=== PATIENT | female | born 1960 | race Caucasian/White ===

== ENCOUNTER 2022-05-26 12:45 | Observation (INO) | payer OTHER ==
--- OUTSIDE RECORDS SUMMARY | 2022-05-26 12:50 | XMS REPORT | Continuity of Care Document ---
:1960 Author Organization [facility] t Address [address] [place] [address] Care Team Providers Name Role Phone SHARPLESS Primary Care Physician Unavailable Surekha Attending Clinician Unavailable THU BELTRAN Attending Clinician Unavailable THU BELTRAN Attending Clinician Unavailable DARRIUS CHRISTINA Attending Clinician Unavailable DARRIUS CHRISTINA Attending Clinician Unavailable ASKED Attending Clinician Unavailable FERNANDO MUKHERJEE Attending Clinician Unavailable FERNANDO MUKHERJEE Attending Clinician Unavailable Peter Ornelas NP Attending Clinician Yaya LILLY Attending Clinician Unavailable Doctor Unassigned, Name Attending Clinician Unavailable Kimo RUVALCABA L Attending Clinician Unavailable Reena Farris Attending Clinician Sangeeta GOMES Attending Clinician Jonathan Keane DO Attending Clinician REENA OROURKE Attending Clinician Unavailable DARRIUS CHRISTINA Admitting Clinician Unavailable Sangeeta GOMES Admitting Clinician Payers Payer Name Policy Type Policy Number Effective Date Expiration Date S ource PREMIUM O - [facility] [id number] 2015 EMPLOYEE PLAN - [facility] 00:00:00 [facility] - [id number] CARDIOVASCULAR CARE PROVIDERS [facility] POS SELECT [id number] 2014 CHOICE 00:00:00 Problems Condition Condition Condition Status Onset Resolution Last Treating Co mments Source Name Details Category Date Date Treatment Clinician Date Pneumonia Pneumonia Disease Active Uni vers due to due to 07-26 ity of COVID-19 COVID-19 00:00: [place] virus virus 00 Medical Branch Preop Preop Disease Active [facility] cardiovasc cardiovasc 6-12 it y of ular exam [place] Type 2 Type 2 Disease Active Overview: [facility] diabetes diabetes 01-01 Formattin Col lege mellitus, mellitus, 00:00: g of this o f controlled controlled 00 note Me dicin (HCCode) (HCCode) might be e different from the original. ON lantus Obesity Obesity Disease Active 2012-11 [facility] 12-28 Assessmen College 00:00: t & Plan: of 00 Formattin Medicin g of this e note might be different from the original. Advised wt loss with healthy diet and excercise Poor sleep Poor sleep Disease Active 2012-11 [facility] hygiene hygiene 2-13 Assessmen [facility] ge 00:00: t & Plan: of 00 Formattin Medicin g of this e note might be different from the original. Re-counse led on proper sleep hygiene practices Sleep-diso Sleep-diso Disease Active 2012-11 [facility] breathing 00:00: t & Plan: o f 00 Formattin Medicin g of this e note might be different from the original. Sleep study reviewed with patient, small amount REM sleep, can not rule out YONATHAN will need repeat Will check HST on weekend , and further plan as indicated Benign Benign Disease Active [facility] neoplasm neoplasm 07-01 Colleg e of other of other 00:00: of specified specified 00 Medi robbin sites of sites of e skin skin Angioma Angioma Disease Active [facility] 07-01 College 00:00: of 00 Medicin e Benign Benign Disease Active 2010-11 [facility] essential essential 12-03 HTN HTN 00:00: Hospita 00 l HLD HLD Disease Active 2010-11 [facility] (hyperlipi (hyperlipi 12-03 st demia) demia) 00:00: Hospita 00 l Diabetes Diabetes Disease Active Metho di mellitus mellitus 1-01 st 00:00: Hospita 00 l Hypothyroi Hypothyroi Disease Active M ethodi dism dism 11-05 st 00:00: Hospita 00 l Type 2 Type 2 Disease Active Overview: Univer s diabetes diabetes 11-05 Formattin ity of mellitus, mellitus, 00:00: g of this [place] controlled controlled note Me dical might be Branch different from the original. Formattin g of this note might be different from the original. ON lantus HYPERTENSI HYPERTENSI Disease Active [facility] [place] [employer] OVERWEIGHT OVERWEIGHT [facility] [employer] DEXTROCARD DEXTROCARD Disease [place] [employer] Hypothyroi Hypothyroi Problem Active C ommon dism dism [facility] Sinus Sinus Problem Active Common problem problem [facility] Type 2 Type 2 Diagnosis Active Common diabetes diabetes Spirit mellitus mellitus - 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 Com mon current current [facility] use of use [facility] insulin insulin [facility] Pain in Pain in Problem Active Common left left Spirit shoulder shoulder [facility] Abnormal Abnormal Problem Active Commo n heart heart Spirit rhythm rhythm [facility] Other Other Problem Active Common chronic chronic [facility] pain pain [facility] Skin Skin Problem Active Common lesion lesion [facility] Allergies, Adverse Reactions, Alerts Allergy Allergy Status Severity Reaction(s) Onset Inactive Treating Comm ents Source Name Type Date Date Clinician Egg Propensi Active Other - See States Uni vers ty to comments 07-25 she feels ity o f adverse 00:00: sleepy [place] reaction 00 and [facility] drug EGG DRUG Active Other-Cmnt Univer s INGREDI 07-25 ity of 00:00: [place] 00 Medical Branch Egg Propensi Active Other (See 2015-11 Unsure Meth brad Derived ty to Comments) 0 st adverse 00:00: Hospita reaction 00 l s to drug Lactobac Propensi Active Other (See 2015-11 Bloating Methodi illus ty to Comments) 0 st Acidoph- adverse 00:00: Hospita Lactase reaction 00 l s to drug Oats Propensi Active Other (See 2015-11 unsure Meth brad (Boy) ty to Comments) 0 st adverse 00:00: Hospita reaction 00 l s to drug Soybean Propensi Active Other (See 2015-11 Unsure Met hodi ty to Comments) 0 adverse 00:00: Hospita reaction 00 l s to drug Yogurt Propensi Active Other (See 2015-11 Unsure Meth brad ty to Comments) 0 adverse 00:00: Hospita reaction 00 l s to drug Cephalex Propensi Active Nausea Only Aster cantorodi in ty to 04-07 st adverse 00:00: Hospita reaction 00 l s to drug LACTOBAC Allergy Active Med Other [facility] Medical LACTASE 00 Center EGG Allergy Active Other [facility] CEPHALEX Allergy Active Low Nausea [facility] 00:[facility] Medical [facility] Center OATS Allergy Active Other [facility] (BOY) [facility] SOYBEAN Allergy [facility] Center YOGURT Allergy Active Other [facility] 00:[facility]: Medical 00 Edroy Keflex Propensi Active GI [facility] ty to 11-09 College adverse 00:00: of reaction 00 Medicin s to e drug Eggs/Aureliano Adverse Active Info Not Commo n les/Oats Reaction Available [facility] Keflex Adverse Active Info Not Common Reaction Available [facility] soy Adverse Active Info Not Common Reaction Available [facility] dairy Adverse Active Info Not Common Reaction Available [facility] Family History Family Member Diagnosis Comments Start Date Stop Date Source Natural father Heart disease [facility] Natural father Other [facility] Natural mother Diabetes [facility] Natural mother Emphysema [facility] Social History Social Habit Start Date Stop Date Quantity Comments Source Exposure to Not sure [employer] SARS-CoV-2 of Medicine (event) History SDOH [facility] Alcohol Frequency Hospita l History SDOH [facility] Alcohol Std Hospital Drinks History SDOH [facility] Alcohol intake 2021-08-29 2021-08-29 Current drinker of [facility] 00:00:00 00:00:00 alcohol (finding) Hospita l Tobacco use and 2016-04-07 2016-04-07 Smokeless tobacco [facility] exposure 00:00:00 00:00:00 non-user Hospital Alcohol Comment 2016-04-07 2016-04-07 occasional [facility] 00:00:00 00:00:00 Hospital Sex Ass[birth year] At [birth year] [facility] 00:00:00 00:00:00 Hospital Smoking Status Start Date Stop Date Source Never smoked tobacco [facility] Medications Ordered Filled Start Stop Current Ordering Indication Dosage Frequency Signature Comments Components Source Medication Medication Date Date Medication? Clinician (SIG) Name Name clonidine 2020-11 Yes 1{patch Place 1 [facility] (CATAPRES) 2-07 } Patch onto Col lege 0.3 MG/24HR 14:59: the skin of patch 09 every 7 Medicin days. e Insulin 2020-11 Yes [id number] 225U Inject 225 [facility] Glargine 2-07 Units into Colle ge (TOUJEO MAX 14:59: the skin of SOLOSTAR 09 daily. Medicin SC) e Loratadine 2020-11 Yes Take by [place] larissa 10 MG CAPS 2-07 mouth. College 14:58: of 40 Medicin e clonidine 2020-11 Yes [id number] 2{patch Place 2 [facility] (CATAPRES) 2-07 } Patches Colleg e 0.3 MG/24HR 14:58: onto the of patch 40 skin every Medicin 7 days. e Dulaglutide 2020-11 Yes [id number] 1.5mg Inject 1.5 [facility] 1.5 2-07 mg into College MG/0.5ML 14:58: the skin of SOPN 40 every 7 Medicin days. e levothyroxi 2020-11 Yes [id number] 88ug Take 88 [place] ne 2-07 mcg by [place] (SYNTHROID) 14:58: mouth of 88 MCG 40 daily. Medicin tablet e lisinopril- 2020-11 Yes [id number] 1{tbl} Take 1 Tab [facility] hydrochloro 2-07 by mouth Nick ege thiazide 14:58: daily. of (PRINZIDE, 40 Medicin ZESTORETIC) e 10-12.5 MG per tablet Na 2020-11 Yes [SUPREP] [facility] Sulfate-K 1-05 Take as [place] Sulfate-Mg 00:00: directed. of Sulf 00 Medicin (SUPREP e BOWEL PREP KIT) 17.5-3.13-1 .6 GM/177ML SOLN omega3/dha/ 2020-11 Yes Gummy Metho di epa/fish 0-25 st oil/sunflw 09:22: Hospita (OMEG3-DHA- 12 l EPA-FISH-SN FL, BULK,) powder coenzyme 2020-11 Yes Chew. [facility] Q10 100 mg 0-25 st tablet,chew 09:21: Hospit a able 49 l cholecalcif 2020-11 Yes 1000U QD Take 1,000 Methodi rahul, 0-[address] vitamin D3, 09:21: mouth Hospi ta (VITAMIN 46 daily. l D3) 1,000 Gummy unit tablet cloniDINE Yes 2{patch 2 Patch, U nivers (CATAPRES-T 08-01 } Transderma it y of TS 3) 0.3 05:00: l (Apply [place] mg/24 hr 00 To Skin), Medica l patch 2 Administer Branch Patch over 7 Days, QWEEKLY, First dose on Sun08/01/21 at 0000, Until Discontinu ed, Routine dulaglutide Yes 1.5mg inject 1.5 Univers (TRULICITY) 9-24 mg under ity of 1.5 mg/0.5 19:03: the skin Nadeem as mL PnIj 20 weekly. Medical Last Branch administra tion 07/25/21 insulin Yes 200U inject 200 Univ ers degludec 9-24 Units ity of (TRESIBA 19:03: under the [place] FLEXTOUCH 20 skin Medical U-100) 100 daily. Branch unit/mL (3 mL) InPn cloniDINE Yes 2{patch Apply 2 Un reid 0.3 mg/24 9-24 } Patches to ity of hr patch 19:03: skin [place] 20 weekly. Medical Branch levothyroxi Yes 88ug Take 88 Uni vers ne 9-24 mcg by ity of (SYNTHROID) 19:03: mouth [place] 88 mcg 20 every Medical tablet morning. Branch lisinopriL- Yes 1{tbl} Take 1 Un reid hydrochloro 9-24 tablet by ity of thiazide 19:03: mouth [place] 10-12.5 mg 20 daily. Medical per tablet Branch loratadine Yes Take by Uni vers 10 mg 9-24 mouth. ity of capsule 19:03: [place] 20 Medical Branch insulin Yes inject Univers glargine 9-24 under the ity of 100 unit/mL 19:03: skin. [place] injection 20 Medical Branch cholecalcif Yes 1000U Take 1,000 Univers rahul, 9-24 Units by ity of vitamin D3, 19:03: mouth. [place] 25 mcg 20 Medical (1,000 Branch unit) tablet omega-3-dha Yes by NOT Univ ers -epa-dpa-fi 9-24 APPLICABLE it y of sh oil 19:03: route. [place] (OMEGA-3 20 Medical 2100) Branch 1,050-1,200 mg Cap dulaglutide Yes 1.5mg inject 1.5 Univers (TRULICITY) 9-24 mg under ity of 1.5 mg/0.5 19:03: the skin [place]adeem as mL PnIj 20 weekly. Medical Last Branch administra tion 07/25/21 insulin Yes 200U inject 200 Univ ers degludec 9-24 Units ity of (TRESIBA 19:03: under the [place] FLEXTOUCH 20 skin Medical U-100) 100 daily. Branch unit/mL (3 mL) InPn cloniDINE Yes 2{patch Apply 2 Un reid 0.3 mg/24 9-24 } Patches to ity of hr patch 19:03: skin [place] 20 weekly. Medical Branch levothyroxi Yes 88ug Take 88 Uni vers ne 9-24 mcg by ity of (SYNTHROID) 19:03: mouth [place] 88 mcg 20 every Medical tablet morning. Branch lisinopriL- Yes 1{tbl} Take 1 Un reid hydrochloro 9-24 tablet by ity of thiazide 19:03: mouth [place] 10-12.5 mg 20 daily. Medical per tablet Branch loratadine Yes Take by Uni vers 10 mg 9-24 mouth. ity of capsule 19:03: [place] 20 Medical Branch insulin Yes inject Univers glargine 9-24 under the ity of 100 unit/mL 19:03: skin. [place] injection 20 Medical Branch cholecalcif Yes 1000U Take 1,000 Univers rahul, 9-24 Units by ity of vitamin D3, 19:03: mouth. [place] 25 mcg 20 Medical (1,000 Branch unit) tablet omega-3-dha Yes by NOT Univ ers -epa-dpa-fi 924 APPLICABLE it y of sh oil 19:03: route. [place] (OMEGA-3 20 Medical 2100) Branch 1,050-1,200 mg Cap dulaglutide Yes 1.5mg inject 1.5 Univers (TRULICITY) 9-24 mg under ity of 1.5 mg/0.5 19:03: the skin [place]ade[place] as mL PnIj 20 weekly. Medical Last Branch administra tion 07/25/21 insulin Yes 200U inject 200 Univ ers degludec 9-24 Units ity of (TRESIBA 19:03: under the [place] FLEXTOUCH 20 skin Medical U-100) 100 daily. Branch unit/mL (3 mL) InPn cloniDINE Yes 2{patch Apply 2 Un reid 0.3 mg/24 9-24 } Patches to ity of hr patch 19:03: skin [place] 20 weekly. Medical Branch levothyroxi Yes 88ug Take 88 Uni vers ne 9-24 mcg by ity of (SYNTHROID) 19:03: mouth [place] 88 mcg 20 every Medical tablet morning. Branch lisinopriL- Yes 1{tbl} Take 1 Un reid hydrochloro 9-24 tablet by ity of thiazide 19:03: mouth [place] 10-12.5 mg 20 daily. Medical per tablet Branch loratadine 2021-0 Yes Take by Uni vers 10 mg 9-24 mouth. ity of capsule 19:03: [place] 20 Medical Branch insulin Yes inject Univers glargine 9-24 under the ity of 100 unit/mL 19:03: skin. [place] injection 20 Medical Branch cholecalcif Yes 1000U Take 1,000 Univers rahul, 9-24 Units by ity of vitamin D3, 19:03: mouth. [place] 25 mcg 20 Medical (1,000 Branch unit) tablet omega-3-dha Yes by NOT Univ ers -epa-dpa-fi 07-29 APPLICABLE it y of sh oil 19:03: route. [place] (OMEGA-3 20 Medical 2100) Branch 1,050-1,200 mg Cap insulin Yes 38U 38 Units, Unive rs glargine 9-24 Subcutaneo ity o f (LANTUS 14:00: us, DAILY, [place] U-100) 00 First dose Medical injection (after Branch 38 Units last modificati on) on Sun07/29/21 at 0900, Until Discontinu ed, Routine insulin Yes 16U 16 Units, Unive rs lispro 9-24 Subcutaneo ity of (human) 13:00: us, TID [place] (HumaLOG 00 MEALS, Medical U-100) First dose Branch injection (after 16 Units last modificati on) on Sun07/29/21 at 0800, Until Discontinu ed, Routine Sliding Yes Subcutaneo Univ ers Scale - us, Q4H, ity of Insulin - 17:00: [place] Lispro 00 on Sun Medical (HumaLOG) + 07/28/21 at Br anch Fsbg 1200, Testing Until Discontinu ed, Routine insulin 0 2020- No 12U 12 Units, Univ ers lispro 07-28 Subcutaneo ity of (human) 17:00: 21:56 us, TID [place] (HumaLOG 00 :42 MEALS, Medical U-100) First dose Branch injection (after 12 Units last modificati on) on Sun07/28/21 at 1200, Until Discontinu ed, Routine Sliding 2020-0 2020- No Subcutaneo Uni vers Scale 07-28 us, Q4H, ity of Insulin - 01:00: 13:41 First dose [place] Lispro 00 :53 (after Medical (HumaLOG) + last Branch Fsbg modificati Testing on) on Sun07/27/21 at 2000, Until Discontinu ed, Routine enoxaparin 0 Yes 40mg 40 mg, Unive rs (LOVENOX) 07-26 Subcutaneo ity of injection 22:00: [place], DAILY, [place] 40 mg 00 First dose Medical on Sun07/26/21 at 1700, Until Discontinu ed, Routine dexamethaso 0 Yes 6mg 6 mg, IV Un reid ne 07-26 Piggyback, ity of (DECADRON 17:00: QNOON, [place] PHOSPHATE) 00 First dose Med ical 6 mg in on Sun NaCl 0.9% 07/26/21 at (NS) 50 mL 1200, piggyback Until Discontinu ed, Administer over 20 Minutes, 50 mL hydroCHLORO Yes 12.5mg 12.5 mg, [facility] thiazide 07-26 Oral, ity of (ESIDRIX) 14:00: DAILY, [place] capsule 00 First dose Medica l 12.5 mg on Sun07/26/21 at 0900, Until Discontinu ed, Routine lisinopriL Yes 10mg 10 mg, Unive rs (PRINIVIL,Z 07-26 Oral, ity of ESTRIL) 14:00: DAILY, [place] tablet 10 00 First dose Medi ken mg on Sun07/26/21 at 0900, Until Discontinu ed, Routine polyethylen Yes 17g 17 g, Unive rs e glycol 07-26 Oral, ity of 3350 powder 14:00: DAILY, [place] 17 g 00 First dose Medical on Sun07/26/21 at 0900, Until Discontinu ed, Routine insulin 2020- No 10U 10 Units, Univ ers lispro 07-26 Subcutaneo ity of (human) 14:00: 13:41 us, TID [place] (HumaLOG 00 :53 MEALS, Medical U-100) First dose Branch injection on Sun 10 Units 07/26/21 at 0900, Until Discontinu ed, Routine insulin 2020- No 34U 34 Units, Univ ers glargine 07-26 Subcutaneo ity of (LANTUS 14:00: 21:57 us, DAILY, [place] as U-100) 00 :13 First dose Medical injection on e Branch 34 Units 07/26/21 at 0900, Until Discontinu ed, Routine Sliding No Subcutaneo Uni vers Scale 07-26 us, TID ity of Insulin - 13:00: 21:16 MEALS+HS, [place] Lispro 00 :49 First dose Medical (HumaLOG) + on Branch Fsbg 07/26/21 at Testing 0800, Until Discontinu ed, Routine levothyroxi Yes 88ug 88 mcg, Uni vers ne 07-26 Oral, ity of (SYNTHROID) 11:00: QAM-0600, [place] tablet 88 00 First dose Medi ken mcg on [facility] Branch 07/26/21 at 0600, Until Discontinu ed, Routine glucagon Yes 1mg 1 mg, Univers (GLUCAGEN 07-26 Intramuscu ity of DIAGNOSTIC 07:34: lar, PRN, [place] KIT) 15 Starting Medical injection 1 on [facility] Branch mg 07/26/21 at 0234, Until Discontinu ed, NEW, Blood Glucose < or = 70 mg/dL and patient is unable to swallow or has mental changes. dextrose 50 Yes 25mL 25 mL, Univ ers % in water 07-26 Slow IV ity of (D50W) 07:34: Push, PRN, [place] injection 15 Starting Medica l 25 mL on [facility] Branch 07/26/21 at 0234, Until Discontinu ed, NEW, Blood Glucose < or = 70 mg/dL and patient is unable to swallow or has mental status changes. ipratropium Yes 2{puff} 2 Puff, Univers (ATROVENT 07-26 Inhalation ity of HFA) 05:40: , Q6HPRN, [place] inhaler 2 06 Starting Medica l Puff on [facility] Branch 07/26/21 at 0040, Until Discontinu ed, Routine, Shortness of Breath, Wheezing, Bronchospa sm, Chest tightness< br>Is this order for a patient with suspected or confirmed COVID-19 infection? Yes albuterol Yes 2{puff} 2 Puff, Un reid (VENTOLIN) 07-26 Inhalation ity of inhaler 2 05:40: , Q6HPRN, [place] as Puff 05 Starting Medical on [facility] Branch 07/26/21 at 0040, Until Discontinu ed, Routine, Wheezing, Shortness of Breath, Bronchospa sm, Chest tightness codeine-gua Yes 10mL 10 mL, Univ ers ifenesin 07-26 Oral, ity of (ROBITUSSIN 05:40: Q6HPRN, [place] as AC) 10-100 03 Starting Medic al mg/5 mL on [facility] oral 07/26/21 at solution 10 0040, mL Until Discontinu ed, Routine, Cough acetaminoph Yes 650mg 650 mg, Un reid en 07-26 Oral, ity of (TYLENOL) 05:38: Q6HPRN, [place] tablet 650 11 Starting Medic al mg on [facility] Branch 07/26/21 at 0038, Until Discontinu ed, Routine, Pain (scale 1-3) iopamidol 2020- No [id number] 100mL 100 mL, Univers (ISOVUE 07-26 Intravenou ity o f 370-500 mL) 00:13: 00:14 s, ONCE, 1 [place] injection 00 :00 dose, On Medica l 100 mL [facility] Branch 07/25/21 at 1930, Routine dexamethaso 2020- No 10mg 10 mg, IV Univers ne 07-26 Push, ity of (DECADRON 00:00: 23:16 ONCE, 1 [place] PHOSPHATE) 00 :00 dose, On Medic al injection [facility] 10 mg 07/25/21 at 1900, STAT lisinopriL- Yes 1 tablet Me thodi hydrochloro 7-[address] thiazide 00:00: Hospita (PRINZIDE) 00 l 10-12.5 mg per tablet clonIDINE Yes APPLY 2 Metho di (CATAPRES-T 7-[address] TS) 0.3 00:00: Hospita mg/24 hr 00 TRANSDERMA l LLY WEEKLY levothyroxi Yes 88ug QD Take 88 Met hodi ne 6-[address] (Thyquidity 00:00: mouth Hospi ta ) 20 mcg/mL 00 daily. l solution dulaglutide Yes INJECT Meth brad (Trulicity) 6-[address] 1.5 mg/0.5 00:00: UNDER THE Ho spita mL 00 SKIN EVERY l subcutaneou 7 DAYS s pen lisinopriL- 2020- No 1 tablet M ethodi hydrochloro 04-27 07-[address] thiazide 00:00: 00:00 Hospita (PRINZIDE) 00 :00 l 10-12.5 mg per tablet lisinopriL- 2020- No 1 tablet M ethodi hydrochloro 04-26 06-22 st thiazide 15:07: 00:00 Hospita (PRINZIDE) 16 :00 l 10-12.5 mg per tablet pravastatin 2020- No 1 tablet M ethodi (PRAVACHOL) 04-26- st 10 mg 15:06: 00:00 Hospita tablet 13 :00 l insulin Yes 300 units Metho di degludec -[address] (TRESIBA) 00:00: Hospita 200 unit/mL 00 l (3 mL) subcutaneou s pen pen needle, Yes Use twice M ethodi diabetic 6-[address] (BD 00:00: Hospita Ultra-Fine 00 l Short Pen Needle) 31 gauge x 5/16" needle Insulin Yes 2 (two) Univers [place], 6-22 times ity of Disposable, 00:00: daily. [place] 31 gauge x 00 Medical 5/16" Ndle Branch Insulin Yes 2 (two) Univers [place], 6-22 times ity of Disposable, 00:00: daily. [place] 31 gauge x 00 Medical 5/16" Ndle Branch Insulin Yes 2 (two) Univers [place], 6-22 times ity of Disposable, 00:00: daily. [place] 31 gauge x 00 Medical 5/16" Ndle Branch Insulin Yes See Admin Baylo r Degludec 6-22 Instructio Colle ge (TRESIBA 00:00: ns. of FLEXTOUCH) 00 Medicin 200 UNIT/ML e SOPN levothyroxi 2021- No 88ug QD Take 1 Met hodi ne 04-26 tablet (88 st (Synthroid) 00:00: 04:59 mcg total) Hospita 88 mcg 00 :00 by mouth l tablet daily. clonIDINE 2020- No APPLY 2 Meth brad (CATAPRES-T 04-26 07-[address] TS) 0.3 00:00: 00:00 Hospita mg/24 hr 00 :00 TRANSDERMA l LLY WEEKLY lisinopriL- 2020- No 1 tablet M ethodi hydrochloro 04-26 st thiazide 00:00: 00:00 Hospita (PRINZIDE) 00 :00 l 10-12.5 mg per tablet dulaglutide 2020- No INJECT Met hodi (Trulicity) 12-[address] 1.5 mg/0.5 00:00: 00:00 UNDER THE H ospita mL pen 00 :00 SKIN EVERY l injector 7 DAYS flash 2019-11 Yes 1{devic Q14D 1 Device Metho di glucose 2-21 e} every 14 st sensor kit 00:00: (fourteen) H ospita 00 days. l flash 2019-11 Yes 1{devic 1 Device Unive rs glucose 2-21 e} by NOT ity of sensor Kit 00:00: APPLICABLE [place] 00 route. Medical Branch flash 2019-11 Yes 1{devic 1 Device Unive rs glucose 2-21 e} by NOT ity of sensor Kit 00:00: APPLICABLE [place] 00 route. Medical Branch flash 2019-11 Yes 1{devic 1 Device Unive rs glucose 2-21 e} by NOT ity of sensor Kit 00:00: APPLICABLE [place] 00 route. Medical Branch clonIDINE 2019-11- No APPLY 2 Meth brad (CATAPRES-T 12-23 06-[address] TS) 0.3 00:00: 00:00 Hospita mg/24 hr 00 :00 TRANSDERMA l LLY WEEKLY Accu-Chek 2019-11- No TEST 4 Metho di Guide test 2-03 06-[address] strips 00:00: 00:00 DAILY Hospita strip test 00 :00 l strips alirocumab 2019-11- No 150mg Q14D Inject 1 M ethodi (PRALUENT) 11-17-22 mL ([address] 150 mg/mL 00:00: 00:00 total) Hospi ta pen 00 :00 under the l injector skin every subcutaneou 14 s injection (fourteen) days. Trulicity 2019-11- No INJECT Metho di 1.5 mg/0.5 11-[address] mL pen 00:00: 00:00 UNDER THE Hospi ta injector 00 :00 SKIN EVERY l 7 DAYS levothyroxi 2019-11- No 100ug QD Take 100 Methodi ne 100 - mcg by st mcg/mL 00:00: 00:00 mouth Hospita solution 00 :00 daily. l pen needle, 2020- No Use twice Methodi diabetic 04-12- daily st (BD 00:00: 00:00 Hospita Ultra-Fine 00 :00 l Short Pen Needle) 31 gauge x 5/16" needle Accu-Chek 2020- No USE 4 Method i Fastclix -28 12- TIMES A st Lancet Drum 00:00: 00:00 DAY Hospi ta misc 00 :00 l insulin 2018-11- No 300 units Meth brad degludec 18 - daily st 200 unit/mL 00:00: 00:00 Hospi ta (3 mL) 00 :00 l insulin pen miconazole Yes [id number] Apply [facility] (MICOTIN) 2 6-05 under College % powder 00:00: abdomen of 00 twice a Medicin day when e rash is present enalapril 1 Yes 5 mL Method i mg/mL in 4-[address] ORA-PLUS 00:00: daily. Hospita sugar-free 00 Patient is l compound unable to vehicle-com swallow pounding tablets vehicle no.8 blood-gluco 2016-11 Yes [id number] Test Me thodi se meter 2-[address] misc 00:00: x daily Hospita 00 l CENTRUM 2004- Yes [facility] SILVER OR 2-19 College TABS 00:00: of 00 Medicin e Tresiba Tresiba Yes Stacie as Common FlexTouch FlexTouch Millender directed [facility] Premarin Premarin Yes Stacie 1 tablet Co mmon Millender [facility] Synthroid Synthroid Yes Stacie 1 tablet Common Millender on an [facility] stomach in [facility] Pravastatin Pravastatin Yes Stacie 1 tablet Common Sodium Sodium Millender [facility] Lisinopril- Lisinopril- Yes Stacie 1 tablet Common Hydrochloro Hydrochloro Mill[facility] thiazide thiazide [facility] Catapres-TT Catapres-TT Yes Stacie 2 patchs Common S-3 S-3 Millender to skin [facility] Trulicity Trulicity Yes Stacie 1.5 mg Co mmon Millender (0.5 ml) [facility] Epaned Epaned Yes Stacie 5 ml Common Millender [facility] Repatha Repatha Yes Stacie as Common Millender directed [facility] Vital Signs Vital Name Observation Time Observation Value Comments Source HEIGHT 2022-02-16 11:50:00 160 cm WEIGHT 2022-02-16 11:50:00 96.616 kg HEIGHT 2022-02-15 09:57:00 160 cm WEIGHT 2022-02-15 09:57:00 97.523 kg HEIGHT 2022-02-16 11:50:00 160 cm WEIGHT 2022-02-16 11:50:00 96.616 kg HEIGHT 2022-02-15 09:57:00 160 cm WEIGHT 2022-02-15 09:57:00 97.523 kg Heart rate 2021-10-11 20:59:00 73 /min [facility] Body height 2021-10-11 20:59:00 160 cm [facility] Body weight 2021-10-11 20:59:00 99.338 kg [facility] BMI 2021-10-11 20:59:00 38.79 kg/m2 [facility] Systolic blood 2021-10-11 20:59:00 152 mm[Hg] [facility] pressure Medicine Diastolic blood 2021-10-11 20:59:00 75 mm[Hg] [facility] Medicine Heart rate 2021-07-29 22:39:00 70 /min [facility] Respiratory rate 2021-07-29 22:39:00 22 /min [facility] Oxygen saturation in 2021-07-29 22:39:00 98 /min [facility] blood by [facility] Pulse oximetry Branch Body temperature 2021-07-29 22:19:00 36.17 Melani [facility] Systolic blood 2021-07-29 21:16:00 133 mm[Hg] [facility] Diastolic blood 2021-07-29 21:16:00 70 mm[Hg] [facility] Body height 2021-07-26 04:39:00 160 cm [facility] Body weight 2021-07-26 04:39:00 98.431 kg [facility] BMI 2021-07-26 04:39:00 38.44 kg/m2 [facility] Procedures Procedure Date / Time Performing Clinician Source Performed CPAP MACHINE 2022-05-03 15:22:15 [facility] COMPREHENSIVE METABOLIC 2021-08-23 13:11:00 Lamar Ornelas [facility] PANEL HEMOGLOBIN A1C 2021-08-23 13:11:00 Lamar Ornelas [facility] LIPID PANEL 2021-08-23 13:11:00 Lamar Ornelas [facility] THYROID STIMULATING 2021-08-23 13:11:00 Lamar Ornelas [facility] HORMONE T4, FREE 2021-08-23 13:11:00 Lamar Ornelas [facility] DNR 2021-08-09 05:01:00 Doctor Unassigned, No [facility]iver [facility] POCT GLUCOSE (AUTOMATED) 2021-07-29 22:17:00 Marcello Orourke [facility] POCT GLUCOSE (AUTOMATED) 2021-07-29 21:16:00 MadelineMarcello Uni versity of [facility] POCT GLUCOSE (AUTOMATED) 2021-07-29 17:03:00 MadelineMarcello Uni vers[facility] of [facility] POCT GLUCOSE (AUTOMATED) 2021-07-29 15:51:00 MadelineMarcello Uni vers[facility] POCT GLUCOSE (AUTOMATED) 2021-07-29 13:17:00 MadelineMarcello [facility] POCT GLUCOSE (AUTOMATED) 2021-07-29 09:59:00 MadelineMarcello [facility] MAGNESIUM 2021-07-29 09:22:00 Chidi Thomason [facility] BASIC METABOLIC PANEL 2021-07-29 09:22:00 Chidi Thomason [facility] [place] (NA, K, CL, CO2, GLUCOSE, Medica l Branch BUN, CREATININE, CA) POCT GLUCOSE (AUTOMATED) 2021-07-29 09:02:00 MadelineMarcello [facility] vers[facility] POCT GLUCOSE (AUTOMATED) 2021-07-29 05:07:00 MadelineMarcello [facility] POCT GLUCOSE (AUTOMATED) 2021-07-29 01:57:00 MadelineMarcello [facility] POCT GLUCOSE (AUTOMATED) 2021-07-28 21:44:00 MadelineMarcello [facility] POCT GLUCOSE (AUTOMATED) 2021-07-28 17:21:00 MadelineMarcello Uni vers[facility] MAGNESIUM 2021-07-28 09:48:00 Chidi Thomason [facility] BASIC METABOLIC PANEL 2021-07-28 09:48:00 Chidi Thomason [facility] [place] (NA, K, CL, CO2, GLUCOSE, Medica l Branch BUN, CREATININE, CA) POCT GLUCOSE (AUTOMATED) 2021-07-28 09:32:00 MadelineMarcello Uni vers[facility] POCT GLUCOSE (AUTOMATED) 2021-07-28 05:04:00 MadelineMarcello [facility] POCT GLUCOSE (AUTOMATED) 2021-07-28 01:33:00 Marcello Orourke [facility] POCT GLUCOSE (AUTOMATED) 2021-07-27 20:17:00 Marcello Orourke [facility] MAGNESIUM 2021-07-27 08:44:00 [facility] BASIC METABOLIC PANEL 2021-07-27 08:44:00 Merritt Taylor [facility] (NA, K, CL, CO2, GLUCOSE, Medica l Branch BUN, CREATININE, CA) CBC WITH DIFF 2021-07-27 08:44:[address] [facility] URINALYSIS 2021-07-26 17:18:[address] [facility] PNEUMOCOCCAL ANTIGEN 2021-07-26 17:18:00 Merritt Taylor [facility] LEGIONELLA URINARY 2021-07-26 17:17:00 Merritt Taylor [facility] ANTIGEN [facility] POCT GLUCOSE (AUTOMATED) 2021-07-26 13:27:00 Marcello Orourke [facility] INTACT PTH CALCIUM GROUP 2021-07-26 09:58:00 Merritt Taylor [facility] PHOSPHORUS 2021-07-26 06:28:[address] [facility] LACTATE DEHYDROGENASE 2021-07-26 06:28:[address] [facility] C-REACTIVE PROTEIN 2021-07-26 06:28:00 Merritt Taylor [facility] TROPONIN I 2021-07-26 06:28:[address] [facility] HEPATIC FUNCTION PANEL 2021-07-26 06:28:00 Merritt Taylor [facility] ([id number]) (ALB,T.PRO,[facility] Branch T,BU/BC,ALT,AST,ALK PHOS) PROCALCITONIN 2021-07-26 06:28:[address] [facility] BLOOD CULTURE SCREEN 2021-07-26 06:26:00 Merritt Taylor [facility] CT CHEST PULMONARY 2021-07-26 00:18:36 Marcello Orourke [facility] ANGIOGRAM [facility] XR CHEST 1 VW 2021-07-25 23:19:54 Ellie Javier [facility] MAGNESIUM 2021-07-25 22:30:[address] [facility] FERRITIN SERUM 2021-07-25 22:30:[address] [facility] TROPONIN I 2021-07-25 22:30:[address] [facility] COMP. METABOLIC PANEL 2021-07-25 22:30:00 Marcello Orourke [facility] ([id number]) [facility] CBC WITH DIFF 2021-07-25 22:30:[address] [facility] GLYCOSYLATED HEMOGLOBIN 2021-07-25 22:30:00 Merritt Taylor [facility] (A1C) [facility] D-DIMER 2021-07-25 22:30:[address] [facility] N-TERMINAL PRO-BNP 2021-07-25 22:30:00 Marcello Orourke [facility] COVID-19 (ID NOW RAPID 2021-07-25 22:30:00 Marcello Orourke [facility] TESTING) Medical Branch LAB ONLY COVID 2021-07-25 22:30:00 Marcello Orourke [facility] INTERPRETATION [facility] HB ECG ROUTINE & RHYTHM 2021-07-25 22:12:50 Marcello Orourke [facility] STRIP [facility] COMPREHENSIVE METABOLIC 2021-04-19 12:45:00 Lamar Ornelas [facility] PANEL HEMOGLOBIN A1C 2021-04-19 12:45:00 Lamar Ornelas [facility] LIPID PANEL 2021-04-19 12:45:00 Lamar Ornelas [facility] THYROID STIMULATING 2021-04-19 12:45:00 Lamar Ornelas [facility] HORMONE T4, FREE 2021-04-19 12:45:00 Lamar Ornelas [facility] MICROALBUMIN / CREATININE 2021-04-19 12:45:00 Lamar Ornelas [facility] URINE RATIO COMPREHENSIVE METABOLIC 2020-12-13 13:58:00 Lamar Ornelas [facility] PANEL HEMOGLOBIN A1C 2020-12-13 13:58:00 Lamar Ornelas [facility] LIPID PANEL 2020-12-13 13:58:00 Lamar Ornelas [facility] THYROID STIMULATING 2020-12-13 13:58:00 Lamar Ornelas [facility] HORMONE T4, FREE 2020-12-13 13:58:00 Lamar Ornelas [facility] Plan of Care Planned Activity Planned Date Details Comments Source Future Scheduled 2021-10-11 RHEUMATOID FACTOR [code Ordered: [facility] Test 15:23:03 = 34334-6] 10/11/2021 of Medicine Future Scheduled 2021-10-11 CCP AB (IGG/IGA) [code Ordered: [facility] Test 15:23:03 = 48063-5] 10/11/2021 of Medicine Future Scheduled 2021-10-11 COMPREHENSIVE METABOLIC Ordered: [facility] Test 15:23:03 PANEL [code = 08811-4] 10/11/[address]icine Future Scheduled 2021-10-11 COMPLETE PFT WITH 1 Occurrences [facility] r College Test 15:19:42 BRONCHODILATOR [code = starting of Ct dicine 65364] 10/11/2021 until 10/12/2022 Future Scheduled 2021-10-11 SIX MINUTE WALK TEST 1 Occurrences [employer] Test 15:19:42 [code = 84981] starting of Medicine 10/11/2021 until 10/11/2022 Future Scheduled 2021-10-11 Pneumococcal Combined [employer] Test 14:57:59 (1 of 2 - PPSV23) [code of edicine = Pneumococcal Combined (1 of 2 - PPSV23)] Future Scheduled 2021-10-11 COVID-19 Vaccine (1) [facility] Test 14:57:59 [code = COVID-19 of Medicine Vaccine (1)] Future Scheduled 2021-10-11 TETANUS SHOT (ADULT) [facility] Test 14:57:59 [code = TETANUS SHOT of Medi cine (ADULT)] Future Scheduled 2021-10-11 Diabetic foot [facility] Col lege Test 14:57:59 examination of Medicine (regime/therapy) [code = 828389522] Future Scheduled 2021-10-11 ANNUAL DIABETIC [facility] C ollege Test 14:57:59 RETINOPATHY SCREENING of Med icine [code = ANNUAL DIABETIC RETINOPATHY SCREENING] Future Scheduled 2021-10-11 BMI FOLLOW UP PLAN [facility] Test 14:57:59 [code = BMI FOLLOW UP of Med icine PLAN] Future Scheduled 2021-10-11 Hepatitis C screening [facility] Test 14:57:59 (procedure) [code = of Medic ine 261640238] Future Scheduled 2021-10-11 Human immunodeficiency [facility] Test 14:57:59 virus screening of Medicine (procedure) [code = 893843883] Future Scheduled 2021-10-11 Screening for malignant [facility] Test 14:57:59 neoplasm of cervix of Medici ne (procedure) [code = 382987725] Future Scheduled 2021-10-11 ZOSTER VACCINE (1 of 2) [facility] Test 14:57:59 [code = ZOSTER VACCINE of Me dicine (1 of 2)] Future Scheduled 2021-10-11 FLU VACCINE > 6 MONTHS B [facility] Test 14:57:59 [code = FLU VACCINE > 6 of M edicine MONTHS] Future Scheduled 2021-10-11 Screening for malignant [facility] Test 14:57:59 neoplasm of breast of Medici ne (procedure) [code = 119373053] Future Scheduled 2021-10-11 Screening for malignant [facility] Test 14:57:59 neoplasm of colon of Medicin e (procedure) [code = 120312577] Future Scheduled 2021-09-14 COVID-19 VACCINE (1) [facility] Test 03:00:44 [code = COVID-19 Hospital VACCINE (1)] Future Scheduled 2021-09-14 DIABETES: RETINAL EYE [facility] Test 03:00:44 EXAM [code = DIABETES: Hospi irma RETINAL EYE EXAM] Future Scheduled 2021-09-14 Hepatitis C screening [facility] Test 03:00:44 (procedure) [code = Hospital 717796161] Future Scheduled 2021-09-14 BREAST CANCER SCREENING [facility] Test 03:00:44 [code = BREAST CANCER Hospit al SCREENING] Future Scheduled 2021-09-14 COLONOSCOPY SCREENING [facility] Test 03:00:44 [code = COLONOSCOPY Hospital SCREENING] Future Scheduled 2021-09-14 SHINGLES VACCINES (#1) M ethodist Test 03:00:44 [code = SHINGLES Hospital VACCINES (#1)] Future Scheduled 2021-09-14 Screening for malignant [facility] Test 03:00:44 neoplasm of cervix Hospital (procedure) [code = 089200819] Future Scheduled 2021-09-14 INFLUENZA VACCINE [code [facility] Test 03:00:44 = INFLUENZA VACCINE] Hospita l Future Scheduled 2021-09-14 DIABETIC FOOT EXAM [facility] Test 03:00:44 [code = DIABETIC FOOT Hospit al EXAM] Future Scheduled 2021-09-14 URINE MICROALBUMIN [facility] Test 03:00:44 [code = URINE Hospital MICROALBUMIN] Encounters Start End Encounter Admission Attending Care Care Encounter Source Date/Time Date/Time Type Type Clinicians Facility Department ID 2021-11-30 Outpatient [facility] [id number] Common 12:03:15 [id number] [facility] 2021-11-30 Outpatient Surekha [facility] [id number] Common 11:18:41 Stacie [id number] [facility] 2022-05-03 2022-05-03 [facility] [id number] [facility] 14:53:32 15:10:38 Wesley HERNANDEZ of Medicin e 2022-04-25 2022-04-25 Outpatient [facility] [id number] [place] 00:00:00 00:00:[address] 2022-03-31 2022-03-31 Outpatient BILL RAPHAEL [facility] [id number] [facility] 18:55:59 23:59:00 VICKI HERNANDEZ 2022-03-27 2022-03-27 Outpatient [facility] [id number] [facility] 07:06:39 07:06:39 2022-02-16 2022-02-16 Outpatient [facility] [id number] [facility] 10:34:00 23:59:00 Colleg e of Medicin e 2022-02-16 2022-02-16 Outpatient BILL CHRISTINA, [facility] Surgery [id number] [facility] 10:34:00 15:46:00 ANH 2022-02-16 2022-02-16 Outpatient CARRI [facility] [id number] [facility] 12:46:19 12:46:19 [facility] Colleg e of Medicin e 2022-02-15 2022-02-15 Outpatient BILL [facility] [id number] [facility] 09:49:47 23:59:00 2022-02-15 2022-02-15 Outpatient [facility] [id number] [facility] 14:51:33 15:07:19 Wesley HERNANDEZ of Medicin e 2022-01-02 2022-01-02 Outpatient [facility] [id number] [place] 00:00:00 00:00:[address] 2021-12-27 2021-12-27 Outpatient ASKED, NO [facility] [id number] [place] 00:00:00 00:00:[address] 2021-12-27 2021-12-27 Outpatient ASKED, NO [facility] [id number] [place] 00:00:00 00:00:[address] 2021-12-21 2021-12-21 Outpatient [facility] [id number] [facility] 00:00:00 00:00:00 Marine HERNANDEZ MAURO of Medicin e 2021-12-19 2021-12-19 Outpatient BILL MUKHERJEE [facility] [id number] [facility] 15:06:37 23:59:00 DIPABEN 2021-10-11 2021-10-11 Office YAZ, BC 1.2.840.114 [id number] [facility] 14:49:12 16:45:40 Visit DIPABEN AMBULATOR 350.1.13.21 College Y 0.2.7.2.686 of [id number] Medi robbin 315 e 2021-08-29 2021-08-29 Telemedicrd Ornelas, 1.2.840.1 [id number] Methodi 09:18:57 09:38:10 reinier Green 41408.1.1 484 s t 3.430.2.7 Hospit a .3.350331 l .8 2021-08-29 2021-08-29 Orders Yaya 1.2.840.1 [id number] Methodi 00:00:00 00:00:00 Only Esperanza [address]2698.1.[address] 3.430.2.7 Hospit a .3.404269 l .8 2021-08-23 2021-08-23 Outpatient BCM BC [id number] [facility] 12:34:09 14:51:53 Marine mascorro of Medicin e 2021-08-09 2021-08-09 Orders Doctor SALDANA 1.2.840.114 [id number] Univers 00:00:00 00:00:00 Only Unassigned, MIA 350.1.13.10 ity of [facility] 4.2.7.2.686 Nadeem as [id number] [facility] 009 Branch 2021-08-01 2021-08-01 Transition Janechandler Popruma 1.2.840.114 [id number] Univers 00:00:00 00:00:00 of Care Chayitord Horne 350.1.13.10 i [place] [id number] [facility] 403 Branch 2021-07-25 2021-07-29 Hospital Marcello Orourke 1.2.840.1 14 [id number] Univers 17:14:00 19:03:00 Encounter Tiffany Rutherford 350.1.13.10 ity of [facility] 4.2.7.2.68 6 [place] [id number] [facility] 099 Branch 2021-07-25 2021-07-25 Emergency X Marcello OROURKE [facility] ERT [id number] Univers 17:14:00 17:14:00 ity of [facility] 2021-07-20 2021-07-20 Orders Mark 1.2.840.1 [id number] Methodi 00:00:00 00:00:00 Only Lamar Lucy. 62341.1.1 653 s t 3.430.2.7 Hospit a .3.485232 l .8 2021-06-03 2021-06-03 Mike Javier, 1.2.840.1 [id number] [id number] Methodi 00:00:00 00:00:[address] 3.430.2.7 Hospit a .3.440782 l .8 2021-05-03 2021-05-03 Sue Ornelas, 1.2.840.1 [id number] Methodi 00:00:00 00:00:00 Only Lamar Ayala. 92994.1.1 524 s t 3.430.2.7 Hospit a .3.870404 l .8 2021-05-03 2021-05-03 Sue Ornelas, 1.2.840.1 [id number] Methodi 00:00:00 00:00:00 Only Lamar Ayala. 86967.1.1 168 s t 3.430.2.7 Hospit a .3.300225 l .8 2021-04-27 2021-04-27 Mike Javier, 1.2.840.1 [id number] [id number] Methodi 00:00:00 00:00:[address] 3.430.2.7 Hospit a .3.790948 l .8 2021-04-26 2021-04-26 Telemedici Mark, 1.2.840.1 [id number] Methodi 14:51:48 15:17:37 ne Lamar Ayala. 30606.1.1 291 s t 3.430.2.7 Hospit a .3.141012 l .8 2021-04-26 2021-04-26 Sue Javier, 1.2.840.1 [id number] 2099 [id number] Methodi 00:00:00 00:00:00 Only [place] [address]72.1.[address] 3.430.2.7 Hospit a .3.426375 l .8 2021-02-22 2021-02-22 Mike Javier, 1.2.840.1 [id number] 2099 [id number] Methodi 00:00:00 00:00:[address] 3.430.2.7 Hospit a .3.495915 l .8 2021-02-04 2021-02-04 Refill Mark 1.2.840.1 [id number] [id number] Methodi 00:00:00 00:00:00 Lamar Green 56783.1.1 195 s t 3.430.2.7 Hospit a .3.784468 l .8 2020-12-27 2020-12-27 Telemedici Mark 1.2.840.1 [id number] Methodi 14:50:20 15:06:06 ne Lamar Green 12177.1.1 276 s t 3.430.2.7 Hospit a .3.956348 l .8 2020-12-27 2020-12-27 Sue Javier 1.2.840.1 [id number] 2099 [id number] Methodi 00:00:00 00:00:00 Only [place] [address]87.1.[address] 3.430.2.7 Hospit a .3.924683 l .8 2020-12-22 2020-12-22 Sue Ornelas 1.2.840.1 [id number] Methodi 00:00:00 00:00:00 Only Lamar Green 60745.1.1 206 s t 3.430.2.7 Hospit a .3.648775 l .8 2020-12-08 2020-12-08 Sue Ornelas 1.2.840.1 [id number] Methodi 00:00:00 00:00:00 Only Lamar Green 17976.1.1 254 s t 3.430.2.7 Hospit a .3.804835 l .8 2020-12-08 2020-12-08 Sue Ornelas, 1.2.840.1 [id number] Methodi 00:00:00 00:00:00 Only Lamar J. 28271.1.1 505 s t 3.430.2.7 [facility] .3.023800 l .8 2020-08-16 2020-08-16 Outpatient MARK [facility] [id number] [place] 00:00:00 00:00:00 LAMAR [address] 2020-04-12 2020-04-12 Outpatient MARK [facility] [id number] [place] 00:00:00 00:00:00 LAMAR 573 Method i 2020-02-25 2020-02-25 Outpatient [facility] [id number] Common 08:00:00 08:00:[address] [facility] 2019-08-28 2019-08-28 Outpatient [facility] [id number] Common 09:09:00 09:09:[address] [facility] it Road [facility] 2019-08-28 2019-08-28 Outpatient [facility] [id number] Common 08:40:00 08:40:[address] [facility] 2019-02-27 2019-02-27 Outpatient [facility] [id number] Common 08:40:00 08:40:[address] [facility] 2018-03-05 2018-03-05 Outpatient [facility] [id number] Common 08:41:00 08:41:[address] [facility] 2018-02-28 2018-02-28 Outpatient [facility] [id number] Common 09:15:00 09:15:[address] [facility] Results Test Description Test Time Test Comments Results Result Comments Source SARS-COV2/RT-PCR ([facility]) 2022-03-27 20:46:05 Test Item Value Reference Range Interpretation Comme nts SARS-COV2/RT-PCR (test code = 6130399) Negative Negative Negative result for this test determines that SARS-CoV-2 RNA was not present in the specimen above the Limit of Detection (LOD). However, Negative results do not preclude SARS-CoV-2 infection and should not be used as the sole basis for treatment or patient management decisions. Negative results must be combined with clinical observations, patient history, and epidemiological information. A false negative result may occur if a specimen is improperly collected, transported, or handled. A false negative result should be considered if patient's recent exposures or clinical presentation indicate that COVID-19 (SARS-CoV-2) is likely and diagnostic tests for other causes of illness are negative. Re-testing should be considered in cases of suspected false negatives.The limit of detection for this assay is 100 copies/mL.This SARS-CoV-2 test is a real-time RT_PCR test intended for the qualitative detection of nucleic acid from SARS-CoV-2 in a nasopharyngeal swab specimen collected from individuals suspected of COVID-19 by their healthcare provider.This test has not been Food and Drug Administration (FDA) cleared or approved. This is a modified version of an approved Emergency Use Authorization (EUA) and is in the process of review by the FDA. Once authorized by the FDA, the issued EUA will be e ffective until the declaration that circumstances exist justifying the authorization of the emergency use of in vitro diagnostic tests for detection and/or diagnosis of COVID-19 is terminated under Section 564(b)(2) of the Act or the EUA is revoked under Section 564(g) of the Act.Testing was performedusing the [employer] SARS-CoV-2 assay.Fact Sheet for Healthcare Providers:https://www.molecular.pineda/edyta/RT SARS-CoV-2 HCP Fact Sheet 51- 578418.pdfFact Sheet for Healthcare Patients:https://www.molecular.pineda/edyta/RT SARS-CoV-2 Patient Fact Sheet EN 51-028696L6.pdfTISSUE [id number] 11:51:01 Surgical Pathology Report Case: [id number] Authorizing Provider: Anh Christina, Collected: 02/16/2022 01:51 PM OrderingLocation[facility] Received: 02/16/2022 04:43 PM SERVICES Pathologist: Iveth Mayfield MD Specimens: A) -Polyp, Colon - Cecum, taken with forceps B) - Polyp, Colon - Left/Descending, cold snare A. CECUM, POLYPECTOMY: - SESSILE SERRATED LESION - NEGATIVE FOR DYSPLASIA B. LEFT/DESCENDING COLON, POLYPECTOMY: - POLYPOID COLONIC MUCOSA WITH FOCAL HYPERPLASTIC CHANGES AND A BENIGN LYMPHOID AGGREGATE - MELANOSIS COLILC/pl Signing Pathologist Direct Phone Line: [phone] signed by Iveth Mayfield MD on 02/21/2022 at 11:50 AMThe endoscopy report is reviewed in conjunction with the case.[id number] x2A. Polyp, Colon - Cecum.Received in formalin labeled with the patient's name, medical record number and "polyp, cecum", are 2 esparza-pink tissue fragments that measure 0.4 and 0.5 in greatest dimension. The specimen is submitted in toto in cassette A1.B. Polyp, Colon - Left/Descending.Received in formalinlabeled with the patient's name, medical record number and "polyp, descending colon", is 1 esparza-pink tissue fragment that measures 0.7 x 0.5 x 0.2 cm. The specimen is submitted in toto in cassette [id number].JGPerformedT4, [id number] 10:10:00 Test Item Value Reference Range Interpretation Comments T4, free (test code 1.65 ng/dL 0.82-1.77 = 3024-7) PREM (test code = Performed at: ) [facility] [address] [id number] Director: Praveen Caicedo MD, Phone: [phone] [facility] [id number] 09:07:00 Test Item Value Reference Interpretation Comments Range Glucose (test code = 65 mg/dL 65-99 2345-7) BUN (test code = 8 mg/dL 8-27 3094-0) Creatinine (test 0.77 mg/dL 0.57-1.00 code = 2160-0) EGFR Non-Afr. 84 mL/min/1.73 >59 Ecuadorean (test code = 2775) EGFR 96 mL/min/1.73 >59 In accordan ce with Ecuadorean (test code recommen dations from = 7063) the NKF-ASN Tas k force, [facility] is in the process of updating its eG FR calculation to the 2020 CKD-EPI creatinine equa tion that estimates kidney function without a race variable. BUN/creatinine ratio 12-28 L (test code = 3097-3) Sodium (test code = 144 mmol/L 333-081 9335-2) Potassium (test code 3.9 mmol/L 3.5-5.2 = 2823-3) Chloride (test code 106 mmol/L 96-106 = 2075-0) CO2 (test code = 24 mmol/L 20-29 2027-9) Calcium (test code = 9.0 mg/dL 8.7-10.3 49669-0) Protein (test code = 6.2 g/dL 6.0-8.5 2885-2) Albumin, S (test 3.7 g/dL 3.8-4.8 L code = 1751-7) Globulin, total 2.5 g/dL 1.5-4.5 (test code = 55997-1) Albumin/globulin 1.2-2.2 ratio (test code = 1759-0) Total bilirubin 0.4 mg/dL 0.0-1.2 (test code = 1975-2) Alkaline phosphatase See_Comment (test code = 6768-6) Pleas e note reference inter casey change [Autom ated message] The sy stem which generated this result transmit uriel reference range : 44 - 121 IU/L. The reference range was not used to interpret this result as normal/abnormal . AST (test code = See_Comment [Automated message] 1920-06) The system [employer] generated this result transmit uriel reference range : 0 - 40 IU/L. The reference range was not used to interpret this result as normal/abnormal . ALT (test code = See_Comment H [Automated message] 1742-6) The system [employer] generated this result transmit uriel reference range : 0 - 32 IU/L. The reference range was not used to interpret this result as normal/abnormal . PREM (test code = Performed at: PREM) 01 - [facility] [address] [place], [place] [id number] Director: Praveen Caicedo MD, Phone: [phone] Lab Interpretation Abnormal (test code = 01528-0) [facility] [id number] 09:07:00 Test Item Value Reference Range Interpretation Comments Cholesterol (test code = 254 mg/dL 100-199 H 2093-3) Triglycerides (test code 181 mg/dL 0-149 H = 2571-8) HDL cholesterol (test 56 mg/dL >39 code = 2085-9) VLDL cholesterol ken 33 mg/dL 5-40 (test code = 29097-1) LDL Chol Calc (NIH) (test 165 mg/dL 0-99 H code = 60196-6) Non-HDL cholesterol (test 198 mg/dL 0-129 H code = 09098-2) PREM (test code = PREM) Performed at: [address] [place] [id number] Director: Praveen Caicedo MD, Phone: [phone] Lab Interpretation (test Abnormal code = 98618-1) [facility] [id number] 09:07:00 Test Item Value Reference Range Interpretation Comments Hemoglobin A1C (test 8.9 % 4.8-5.6 H code = 4548-4) Prediabetes: 5.7 - 6.4 Diabetes: >6.4 Glycemic control for adults with diabetes: <7.0 PREM (test code = PREM) Performed at: [address] [place] [id number] Director: Praveen Caicedo MD, Phone: [phone] Lab Interpretation Abnormal (test code = 95613-1) [facility] CenterThyroid stimulating [id number] 09:07:00 Test Item Value Reference Range Interpretation Comments TSH (test code See_Comment [Automated m essage] = 21719-6) The system [employer] generated this result transmit uriel reference range : 0.450 - 4.500 uIU/mL. The reference range was not used to interpret this result as normal/abnormal . PREM (test code Performed at: - = PREM) [address] [id number] Director: Praveen Caicedo MD, Phone: [phone] [facility]2021-[facility]-29 22:23:03 Test Item Value Reference Range Interpretation Comments POCT GLU (test code = 9114695050) 259 mg/dL 70-110 H Lab Interpretation (test code = Abnormal 36302-7) [facility] GLUCOSE (AUTOMATED)2021-07-29 21:18:32 Test Item Value Reference Range Interpretation Comments POCT GLU (test code = 2627869632) 262 mg/dL 70-110 H Lab Interpretation (test code = Abnormal 67114-6) [facility] GLUCOSE (AUTOMATED)2021-07-29 17:04:04 Test Item Value Reference Range Interpretation Comments POCT GLU (test code = 6520914975) 265 mg/dL 70-110 H Lab Interpretation (test code = Abnormal 23143-1) [facility] GLUCOSE (AUTOMATED)2021-07-29 15:52:47 Test Item Value Reference Range Interpretation Comments POCT GLU (test code = 5580768117) 330 mg/dL 70-110 H Lab Interpretation (test code = Abnormal 73644-5) [facility] GLUCOSE (AUTOMATED)2021-07-29 13:34:58 Test Item Value Reference Range Interpretation Comments POCT GLU (test code = 3839710918) 228 mg/dL 70-110 H Lab Interpretation (test code = Abnormal 39635-9) [facility] 10[facility]42:12 Test Item Value Reference Range Interpretation Comments MAGNESIUM (test code = 0153788489) 2.2 mg/dL 1.7-2.4 Lab Interpretation (test code = Normal 95786-7) [facility] (NA, K, CL, CO2, GLUCOSE, BUN, CREATININE, CA)2021-07-29 10:42:12 Test Item Value Reference Range Interpretation Comments NA (test code = 135 mmol/L 135-145 4906405055) K (test code = 4.6 mmol/L 3.5-5.0 0517935783) CL (test code = 100 mmol/L 98-108 2248958877) CO2 TOTAL (test code = 27 mmol/L 23-31 8544711007) AGAP (test code = 2-16 4548336709) BUN (test code = 24 mg/dL 7-23 H 6903095528) GLUCOSE (test code = 262 mg/dL 70-110 H 0310164473) CREATININE (test code = 0.73 mg/dL 0.50-1.04 7664631222) CALCIUM (test code = 9.0 mg/dL 8.6-10.6 5135467715) eGFR (test code = mL/min/1.73m2 7912369581) PREM (test code = PREM) Association of Glomerular Filtration Rate (GFR) and Staging of Kidney Disease* + --+ --+ ------+| GFR (mL/min/1.73 m2) ?| With Kidney Damage ?| ?Without Kidney Damage+ --------+ --------+ +| ?>90 ?| ?Stage one ?| ? Normal ?+ ---+ ---+ -------+| ?60-89 ?| ?Stage two ?| ? Decreased GFR ? + --+ --+ ------+| ?30-59 ?| ?Stage three ?| ? Stage three ? + --+ --+ ------+| ?15-29 ?| ?Stage four ? | ? Stage four ?+ ---+ ---+ -------+| ?<15 (or dialysis) ? ?| ?Stage five ? | ? Stage five ?+ ---+ ---+ -------+ *Each stage assumes the associated GFR level has been in effect for at least three months. ?Stages 1 to 5, with or without kidney disease, indicate chronic kidney disease. Notes: Determination of stages one and two (with eGFR >59mL/min/1.73 m2) requires estimation of kidney damage for at least three months as defined by structural or functional abnormalities of the kidney, manifested by either:Pathological abnormalities or Markers of kidney damage (including abnormalities in the composition of the blood or urine or abnormalities in imaging tests). Lab Interpretation Abnormal (test code = 58368-8) [facility] GLUCOSE (AUTOMATED)2021-07-29 09:59:35 Test Item Value Reference Range Interpretation Comments POCT GLU (test code = 9930929581) 232 mg/dL 70-110 H Lab Interpretation (test code = Abnormal 07371-4) [facility] GLUCOSE (AUTOMATED)2021-07-29 09:19:45 Test Item Value Reference Range Interpretation Comments POCT GLU (test code = 1404338461) 267 mg/dL 70-110 H Lab Interpretation (test code = Abnormal 67198-7) [facility] GLUCOSE (AUTOMATED)2021-07-29 05:08:51 Test Item Value Reference Range Interpretation Comments POCT GLU (test code = 7411479038) 278 mg/dL 70-110 H Lab Interpretation (test code = Abnormal 65870-9) [facility] GLUCOSE (AUTOMATED)2021-07-29 01:57:48 Test Item Value Reference Range Interpretation Comments POCT GLU (test code = 6425568547) 350 mg/dL 70-110 H Lab Interpretation (test code = Abnormal 83613-4) [facility] GLUCOSE (AUTOMATED)2021-07-28 21:45:40 Test Item Value Reference Range Interpretation Comments POCT GLU (test code = 1646428451) 340 mg/dL 70-110 H Lab Interpretation (test code = Abnormal 02269-7) [facility] GLUCOSE (AUTOMATED)2021-07-28 17:23:19 Test Item Value Reference Range Interpretation Comments POCT GLU (test code = 4102952577) 415 mg/dL 70-110 H Lab Interpretation (test code = Abnormal 10679-2) [facility] METABOLIC PANEL (NA, K, CL, CO2, GLUCOSE, BUN, CREATININE, CA)2021-07-28 10:45:25 Test Item Value Reference Range Interpretation Comments NA (test code = 137 mmol/L 135-145 6759700427) K (test code = 4.5 mmol/L 3.5-5.0 2486073045) CL (test code = 101 mmol/L 98-108 2480122263) CO2 TOTAL (test code = 25 mmol/L 23-31 4835535092) AGAP (test code = 2-16 9965951722) BUN (test code = 25 mg/dL 7-23 H 0091956781) GLUCOSE (test code = 283 mg/dL 70-110 H 7831723388) CREATININE (test code = 0.81 mg/dL 0.50-1.04 7421236593) CALCIUM (test code = 9.2 mg/dL 8.6-10.6 5202010824) eGFR (test code = mL/min/1.73m2 4521741732) PREM (test code = PREM) Association of Glomerular Filtration Rate (GFR) and Staging of Kidney Disease* + --+ --+ ------+| GFR (mL/min/1.73 m2) ?| With Kidney Damage ?| ?Without Kidney Damage+ --------+ --------+ +| ?>90 ?| ?Stage one ?| ? Normal ?+ ---+ ---+ -------+| ?60-89 ?| ?Stage two ?| ? Decreased GFR ? + --+ --+ ------+| ?30-59 ?| ?Stage three ?| ? Stage three ? + --+ --+ ------+| ?15-29 ?| ?Stage four ? | ? Stage four ?+ ---+ ---+ -------+| ?<15 (or dialysis) ? ?| ?Stage five ? | ? Stage five ?+ ---+ ---+ -------+ *Each stage assumes the associated GFR level has been in effect for at least three months. ?Stages 1 to 5, with or without kidney disease, indicate chronic kidney disease. Notes: Determination of stages one and two (with eGFR >59mL/min/1.73 m2) requires estimation of kidney damage for at least three months as defined by structural or functional abnormalities of the kidney, manifested by either:Pathological abnormalities or Markers of kidney damage (including abnormalities in the composition of the blood or urine or abnormalities in imaging tests). Lab Interpretation Abnormal (test code = 05730-6) [facility]25 Test Item Value Reference Range Interpretation Comments MAGNESIUM (test code = 9081027898) 2.1 mg/dL 1.7-2.4 Lab Interpretation (test code = Normal 97547-3) [facility] GLUCOSE (AUTOMATED)2021-07-28 09:33:24 Test Item Value Reference Range Interpretation Comments POCT GLU (test code = 6726465484) 289 mg/dL 70-110 H Lab Interpretation (test code = Abnormal 43301-4) [facility] GLUCOSE (AUTOMATED)2021-07-28 05:06:11 Test Item Value Reference Range Interpretation Comments POCT GLU (test code = 5281715019) 289 mg/dL 70-110 H Lab Interpretation (test code = Abnormal 43458-3) [facility] GLUCOSE (AUTOMATED)2021-07-28 01:34:48 Test Item Value Reference Range Interpretation Comments POCT GLU (test code = 1399771891) 352 mg/dL 70-110 H Lab Interpretation (test code = Abnormal 45882-9) [facility]2021-07-27 20:17:53 Test Item Value Reference Range Interpretation Comments POCT GLU (test code = 3793385744) 336 mg/dL 70-110 H Lab Interpretation (test code = Abnormal 13441-7) [facility] Metabolic Panel (NA, K, CL, CO2, GLUCOSE, BUN, CREATININE, CA)2021-07-27 09:57:38 Test Item Value Reference Range Interpretation Comments NA (test code = 135 mmol/L 135-145 2250753717) K (test code = 4.2 mmol/L 3.5-5.0 Slight 6704835890) hemolysis CL (test code = 102 mmol/L 98-108 7027729903) CO2 TOTAL (test code 22 mmol/L 23-31 L = 9190800078) AGAP (test code = 2-16 9006954086) BUN (test code = 24 mg/dL 7-23 H Slight 4925354068) hemolysis GLUCOSE (test code = 264 mg/dL 70-110 H 0125830573) CREATININE (test code 0.81 mg/dL 0.50-1.04 = 7606622025) CALCIUM (test code = 9.3 mg/dL 8.6-10.6 7559520576) eGFR (test code = mL/min/1.73m2 4012101521) PREM (test code = PREM) Association of Glomerular Filtration Rate (GFR) and Staging of Kidney Disease* + -----+ --------+ +| GFR (mL/min/1.73 m2) ?| With Kidney Damage ?| ?Without Kidney Damage+ +------- +---- --+| ?>90 ?| ?Stage one ?| ? Normal ?+ ------+ ---------+--------- +| ?60-89 ?| ?Stage two ?| ? Decreased GFR ? + -----+ --------+ +| ?30-59 ?| ?Stage three ?| ? Stage three ? + -----+ --------+ +| ?15-29 ?| ?Stage four ? | ? Stage four ?+ ------+ ---------+--------- +| ?<15 (or dialysis) ? ?| ?Stage five ? | ? Stage five ?+ ------+ ---------+--------- + *Each stage assumes the associated GFR level has been in effect for at least three months. ?Stages 1 to 5, with or without kidney disease, indicate chronic kidney disease. Notes: Determination of stages one and two (with eGFR >59mL/min/1.73 m2) requires estimation of kidney damage for at least three months as defined by structural or functional abnormalities of the kidney, manifested by either:Pathological abnormalities or Markers of kidney damage (including abnormalities in the composition of the blood or urine or abnormalities in imaging tests). Lab Interpretation Abnormal (test code = 25728-1) [facility] 09:57:38 Test Item Value Reference Range Interpretation Comments MAGNESIUM (test code = 7073827246) 2.2 mg/dL 1.7-2.4 Lab Interpretation (test code = Normal 81133-1) [facility] with [id number] 09:35:01 Test Item Value Reference Range Interpretation Comments WBC (test code = See_Comment [Automated 5990-2) message] The sy stem which generated this result transmitted reference range : 4.30 - 11.10 10*3/?L. The reference range was not used to interpret this result as normal/abnormal . RBC (test code = See_Comment [Automated 819-8) message] The sy stem which generated this result transmitted reference range : 3.93 - 5.25 10*6/?L. The reference range was not used to interpret this result as normal/abnormal . HGB (test code = 14.2 g/dL 11.6-15.0 718-7) HCT (test code = 42.4 % 35.7-45.2 4544-3) MCV (test code = 81.1 fL 80.6-95.5 787-2) MCH (test code = 27.2 pg 25.9-32.8 785-6) MCHC (test code = 33.5 g/dL 31.6-35.1 786-4) RDW-SD (test code = 43.5 fL 39.0-49.9 30509-3) RDW-CV (test code = 14.7 % 12.0-15.5 788-0) PLT (test code = See_Comment [Automated 777-3) message] The sy stem which generated this result transmitted reference range : 166 - 358 10*3/ ?L. The reference r gray was not used to interpret this result as normal/abnormal . MPV (test code = 9.6 fL 9.5-12.9 15257-1) NRBC/100 WBC (test See_Comment [Automat ed code = 7296500818) message] The system which generated this result transmitted reference range : 0.0 - 10.0 /100 WBCs. The refer ence range was not u sed to interpret th is result as normal/abnormal . NRBC x10^3 (test code <0.01 See_Comment [Auto mated = 6574757862) message] The s ystem which generated this result transmitted reference range : 10*3/?L. The reference range was not used to interpret this result as normal/abnormal . GRAN MAT (NEUT) % 84.0 % (test code = 770-8) IMM GRAN % (test code 0.60 % = 9709966208) LYMPH % (test code = 9.1 % 736-9) MONO % (test code = 6.2 % 5905-5) EOS % (test code = 0.0 % 713-8) BASO % (test code = 0.1 % 706-2) GRAN MAT x10^3(ANC) 9.20 10*3/uL 1.88-7.09 H (test code = 7052994406) IMM GRAN x10^3 (test 0.07 10*3/uL 0.00-0.06 H code = 5118506478) LYMPH x10^3 (test code 1.00 10*3/uL 1.32-3.29 L = 731-0) MONO x10^3 (test code 0.68 10*3/uL 0.33-0.92 = 742-7) EOS x10^3 (test code = <0.03 0.03-0.39 L 711-2) BASO x10^3 (test code <0.03 0.01-0.07 = 704-7) REACT LYMPHS (test Rare code = 0117085740) Lab Interpretation Abnormal (test code = 93042-7) [facility]25:48 Test Item Value Reference Range Interpretation Comments APPEARANCE (test code = Cloudy Clear A 6270089226) COLOR (test code = Yellow Yellow 5162065500) PH (test code = 4.8-8.0 3539971066) SP GRAVITY (test code = 1.003-1.030 H 7017141521) GLU U QUAL (test code = 500 mg/dL Normal A 6702553045) BLOOD (test code = Negative Negative 6846517649) KETONES (test code = 5 mg/dL Negative A 7033697550) PROTEIN (test code = 30 mg/dL Negative A 2887-8) UROBILIN (test code = Normal Normal 0090717368) BILIRUBIN (test code = Negative Negative 6300508882) NITRITE (test code = Negative Negative 6933181020) LEUK MEGAN (test code = Negative Negative 8159083190) RBC/HPF (test code = See_Comment [Autom ated message] 3321364170) The system [employer] generated this result transmit uriel reference range : 0 - 3 HPF. The refe rence range was not u sed to interpret th is result as normal/abnormal . WBC/HPF (test code = See_Comment [Autom ated message] 8657501523) The system [employer] generated this result transmit uriel reference range : 0 - 5 HPF. The refe rence range was not u sed to interpret th is result as normal/abnormal . BACTERIA (test code = Moderate Negative A 8843144448) MUCOUS (test code = Marked Negative LPF A 2759548950) AMORPHOUS (test code = Moderate Rare HPF A 2026433286) SQ EPITH (test code = See_Comment [Auto mated message] 2678051868) The system [employer] generated this result transmit uriel reference range : <=2 HPF. The refere nce range was not u sed to interpret th is result as normal/abnormal . Lab Interpretation (test Abnormal code = 55507-0) [facility] CAL[facility] [id number] 17:58:55 Test Item Value Reference Range Interpretation Comments PTH-INTACT (test code = 39.3 pg/mL 12.0-88.0 1418122247) PTH-CA Interpretation PTH IS Appropriate (test code = for Calcium 4676125997) CALCIUM (test code = 9.1 mg/dL 8.6-10.6 6224299769) [facility] CenterC-REACTIVE [id number] 16:48:57 Test Item Value Reference Range Interpretation Comments CRP (test code = 4449344420) 8.7 mg/dL <0.8 H Lab Interpretation (test code = Abnormal 56671-0) [facility]2021-[facility]-26 13:43:35 Test Item Value Reference Range Interpretation Comments POCT GLU (test code = 0256531597) 252 mg/dL 70-110 H Lab Interpretation (test code = Abnormal 76674-4) [facility] CenterTROP[facility]IN [id number] 09:38:25 Test Item Value Reference Interpretation Comments Range TROPONIN I (test 0.000 ng/mL See_Comment [Automated code = 9063104189) message] The system which generated this result transmitted reference range : <=0.034. The reference range was not used to interpret this result as normal/abnormal . PREM (test code = Reference (Normal) PREM) Range (defined by the 99th percentile reference limit): <= 0.034 ng/mL Note: Cardiac troponin begins to rise 3-4 hours after the onset of ischemia. Repeat in 4-6 hours if the sample was drawn within 3-4 hours of the onset of the symptom and found normal. Diagnosis of myocardial injury is made with acute changes in cTn concentrations with at least one serial sample above the 99th percentile upper reference limit (URL), taken together with the patient's clinical presentation. Biotin has been reported to cause a negative bias, interpret results relative to patient's use of biotin. Lab Interpretation Normal (test code = 65052-3) [facility]63960[facility] (ALB,T.PRO,BILI T,BU/BC,ALT,AST,ALK PHOS)2021-07-26 09:26:42 Test Item Value Reference Range Interpretation Comments TOTAL BILI (test code = 9813691384) 0.6 mg/dL 0.1-1.1 BILI UNCON (test code = 5203976835) 0.2 mg/dL 0.1-1.1 BILI CONJ (test code = 3843361307) 0.0 mg/dL 0.0-0.3 T PROTEIN (test code = 2114287077) 7.0 g/dL 6.3-8.2 ALBUMIN (test code = 4768975912) 3.9 g/dL 3.5-5.0 ALK PHOS (test code = 4771025381) 68 U/L 34-122 ALTv (test code = 1742-6) 32 U/L 5-35 AST(SGOT) (test code = 3806768981) 53 U/L 13-40 H Lab Interpretation (test code = Abnormal 50665-8) [facility]PHOSPHORUS2021-[facility]-21 09:26:42 Test Item Value Reference Range Interpretation Comments PHOSPHORUS (test code = 9527031887) 3.7 mg/dL 2.5-5.0 Lab Interpretation (test code = Normal 78524-4) [facility] CenterPROCALCITONIN2021-09-21 07:48:15 Test Item Value Reference Range Interpretation Comments Procalcitonin (test 0.06 ng/mL <0.07 code = 2815478093) PREM (test code = PREM) INTERPRETATION OF PROCALCITONIN RESULTS IN ADULTS >= 18 YEARS OF AGE Initiation and discontinuation of antibiotics on patients with suspected or confirmed Lower Respiratory Tract Infection in Adults >= 18 years of age. + +-------- --------+ + -----+|Procalcitonin |Interpretation ?|Antibiotic ? ? |Considerations ? |ng/mL ? | ?|recommendation | ? + +-------- --------+ + -----+| <0.1 ? | Bacterial ? ? ?| Strongly ? ? ?| ? | ?| infection very | discouraged ? | Overruling: ? | ?| unlikely ? ? ? | ? | ? Clinically unstable ? ? ? + +-------- --------+ + ? High risk for adverse ? ? | <0.25 ?| Bacterial ? ? ?| Discouraged ? | ? outcome ? | ?| infection ? ? ?| ? | ? SEE IMPORTANT NOTE ?| ?| unlikely ? ? ? | ? | ? + +-------- --------+ + -----+| >=0.25 ? ? ? | Bacterial ? ? ?| Encouraged ? ?| ? | ?| infection ? ? ?| ? | ? | ?| likely ? | ? | Consider treatment failure ?+ +------- ---------+ -+ if levels does not decrease | >0.5 ? | Bacterial ? ? ?| Strongly ? ? ?| appropriately ? | ?| infection very | encouraged ? ?| ? | ?| likely ? | ? | ? + +-------- --------+ + -----+ Discontinuation of antibiotics in high-acuity patients with suspected or confirmed sepsis in Adults >= 18 years of age. + +-------- --------+ + -----+|Procalcitonin |Interpretation ?|Antibiotic ? ? |Considerations ? |ng/mL ? | ?|recommendation | ? + +-------- --------+ + -----+| <0.25 ?| Bacterial ? ? ?| Strongly ? ? ?| ? | ?| infection very | discouraged ? | Overruling: ? | ?| unlikely ? ? ? | ? | ? Clinically unstable ? ? ? + +-------- --------+ + ? High risk for adverse ? ? | <0.5 or drop | Bacterial ? ? ?| Discouraged ? | ? outcome ? | >80% from ? ?| infection ? ? ?| ? | ? SEE IMPORTANT NOTE ?| highest PCT ?| unlikely ? ? ? | ? | ? | level ?| ?| ? | ? + +-------- --------+ + -----+| >=0.5 ?| Bacterial ? ? ?| Encouraged ? ?| ? | ?| infection ? ? ?| ? | ? | ?| likely ? | ? | Consider treatment failure ?+ +------- ---------+ -+ if levels does not decrease | >1.0 ? | Bacterial ? ? ?| Strongly ? ? ?| appropriately ? | ?| infection very | encouraged ? ?| ? | ?| likely ? | ? | ? + +-------- --------+ + -----+ Percentage of drop of Procalcitonin calculation for Discontinuation of antibiotics in high-acuity patients with suspected or confirmed sepsis in Adults >= 18 years of age. ? Procalcitonin highest{}-Procalcitonin current{}Delta Procalcitonin = x100% ? Procalcitonin current {} IMPORTANT NOTE: Procalcitonin may be elevated without bacterial infection by physiologic stress related to trauma, bedolla, chronic dialysis, metastatic cancer, surgery in the past seven days, malaria, some fungal infections, and some forms of vasculitis. The interpretation algorithm may not apply to patients with immunosuppression (equivalent of >10 mg of prednisone daily), HIV with CD4 cell count < 350 cells/mm3, active malignancy on systemic chemotherapy, solid organ transplant or hematopoietic stem cell transplantation, or hospital acquired pneumonia. Additionally, some clinical trials of procalcitonin have excluded patients with shock requiring vasopressor use, acute respiratory failure requiring mechanical ventilation, or those with known lung abscess/empyema. For further information please refer to:[email or web address] Lab Interpretation Normal (test code = 41186-8) [facility] CenterLACTATE [id number] 07:19:07 Test Item Value Reference Range Interpretation Comments LDH (test code = 2632038945) 1015 U/L 300-600 H Lab Interpretation (test code = Abnormal 89617-6) [facility] CenterFERRITIN [id number] 06:49:26 Test Item Value Reference Range Interpretation Comments FERRITIN (test code = 481.0 ng/mL 11.0-264.0 H 8549483820) PREM (test code = PREM) Biotin has been reported to cause a negative bias, interpret results relative to patient's use of biotin. Lab Interpretation (test Abnormal code = 64326-1) [facility]21-[facility]-26 06:17:46 Test Item Value Reference Range Interpretation Comments HGB A1C (test code = 8.8 % 4.0-5.7 H 4548-4) PREM (test code = PREM) Reference RangesNormal: <5.7%Prediabetes: 5.7 - 6.4%Diabetes: > 6.5% Lab Interpretation (test Abnormal code = 72962-8) [facility]TR[facility] [id number] 23:31:42 Test Item Value Reference Interpretation Comments Range TROPONIN I (test 0.004 ng/mL See_Comment [Automated code = 7956628211) message] The system which generated this result transmitted reference range : <=0.034. The reference range was not used to interpret this result as normal/abnormal . PREM (test code = Reference (Normal) PREM) Range (defined by the 99th percentile reference limit): <= 0.034 ng/mL Note: Cardiac troponin begins to rise 3-4 hours after the onset of ischemia. Repeat in 4-6 hours if the sample was drawn within 3-4 hours of the onset of the symptom and found normal. Diagnosis of myocardial injury is made with acute changes in cTn concentrations with at least one serial sample above the 99th percentile upper reference limit (URL), taken together with the patient's clinical presentation. Biotin has been reported to cause a negative bias, interpret results relative to patient's use of biotin. Lab Interpretation Normal (test code = 04388-7) [facility]AL [id number] 23:28:23 Test Item Value Reference Range Interpretation Comments NT-proBNP (test code 181 pg/mL See_Comment H [Autom ated = 0879306641) message] The system which generated this result transmitted reference range : <=125. The reference range was not used to interpret this result as normal/abnormal . PREM (test code = PREM) Biotin has been reported to cause a negative bias, interpret results relative to patient's use of biotin. Lab Interpretation Abnormal (test code = 65529-8) [facility]2021[facility] 23:18:00 Test Item Value Reference Range Interpretation Comments MAGNESIUM (test code = 4210181328) 2.3 mg/dL 1.7-2.4 Lab Interpretation (test code = Normal 08567-4) [facility]. METABOLIC PANEL (32790)2021-07-25 23:17:40 Test Item Value Reference Range Interpretation Comments NA (test code = 134 mmol/L 135-145 L 2255404618) K (test code = 3.9 mmol/L 3.5-5.0 1925598062) CL (test code = 100 mmol/L 98-108 1191147661) CO2 TOTAL (test code = 22 mmol/L 23-31 L 5935541352) AGAP (test code = 2-16 1032294380) BUN (test code = 26 mg/dL 7-23 H 8054423401) GLUCOSE (test code = 253 mg/dL 70-110 H 9886269075) CREATININE (test code = 1.11 mg/dL 0.50-1.04 H 4005748395) TOTAL BILI (test code = 0.9 mg/dL 0.1-1.6 2251000132) CALCIUM (test code = 9.0 mg/dL 8.6-10.6 3595494379) T PROTEIN (test code = 7.8 g/dL 6.3-8.2 4425718545) ALBUMIN (test code = 4.0 g/dL 3.5-5.0 2126176030) ALK PHOS (test code = 65 U/L 34-122 1270546805) ALTv (test code = 31 U/L 5-35 1742-6) AST(SGOT) (test code = 51 U/L 13-40 H 1345730737) eGFR (test code = mL/min/1.73m2 2847925795) PREM (test code = PREM) Association of Glomerular Filtration Rate (GFR) and Staging of Kidney Disease* + --+ --+ ------+| GFR (mL/min/1.73 m2) ?| With Kidney Damage ?| ?Without Kidney Damage+ --------+ --------+ +| ?>90 ?| ?Stage one ?| ? Normal ?+ ---+ ---+ -------+| ?60-89 ?| ?Stage two ?| ? Decreased GFR ? + --+ --+ ------+| ?30-59 ?| ?Stage three ?| ? Stage three ? + --+ --+ ------+| ?15-29 ?| ?Stage four ? | ? Stage four ?+ ---+ ---+ -------+| ?<15 (or dialysis) ? ?| ?Stage five ? | ? Stage five ?+ ---+ ---+ -------+ *Each stage assumes the associated GFR level has been in effect for at least three months. ?Stages 1 to 5, with or without kidney disease, indicate chronic kidney disease. Notes: Determination of stages one and two (with eGFR >59mL/min/1.73 m2) requires estimation of kidney damage for at least three months as defined by structural or functional abnormalities of the kidney, manifested by either:Pathological abnormalities or Markers of kidney damage (including abnormalities in the composition of the blood or urine or abnormalities in imaging tests). Lab Interpretation Abnormal (test code = 89585-5) [facility] CenterD-[id number] 23:10:16 Test Item Value Reference Interpretation Comments Range D-DIMER (test code = See_Comment H [Autom ated 1397089155) message] The system which generated this result transmitted reference range : <0.41 ?g/mL (FEU). The reference range was not used to interpret this result as normal/abnormal . PREM (test code = This test may be PREM) used in conjunction with a clinical pretest probability (PTP) assessment model to exclude venous thromboembolism (VTE) in patients suspected of deep venous thrombosis (DVT) and pulmonary embolism (PE) A D-Dimer value less than 0.50 ?g/ml (FEU) has a negative predicative value of 96 to 100% (95% CI)and 97 to 100% (95% CI) as an aid in the diagnosis of deep vein thrombosis (DVT) and pulmonary embolism when there is low or moderate pretest probability of PE or DVT. D-Dimer values are expressed in initial fibrinogen equivalent units (FEU)" The assay results should be used with other information, including the clinical context, in forming a diagnosis. Lab Interpretation Abnormal (test code = 20595-4) [facility] WITH [id number] 23:03:15 Test Item Value Reference Range Interpretation Comments WBC (test code = See_Comment [Automated 6690-2) message] The sy stem which generated this result transmitted reference range : 4.30 - 11.10 10*3/?L. The reference range was not used to interpret this result as normal/abnormal . RBC (test code = See_Comment [Automated 789-8) message] The sy stem which generated this result transmitted reference range : 3.93 - 5.25 10*6/?L. The reference range was not used to interpret this result as normal/abnormal . HGB (test code = 13.9 g/dL 11.6-15.0 718-7) HCT (test code = 42.5 % 35.7-45.2 4544-3) MCV (test code = 81.0 fL 80.6-95.5 787-2) MCH (test code = 26.5 pg 25.9-32.8 785-6) MCHC (test code = 32.7 g/dL 31.6-35.1 786-4) RDW-SD (test code = 43.2 fL 39.0-49.9 71898-2) RDW-CV (test code = 14.7 % 12.0-15.5 788-0) PLT (test code = See_Comment [Automated 777-3) message] The sy stem which generated this result transmitted reference range : 166 - 358 10*3/ ?L. The reference r gray was not used to interpret this result as normal/abnormal . MPV (test code = 9.9 fL 9.5-12.9 36781-2) NRBC/100 WBC (test See_Comment [Automat ed code = 1527144474) message] The system which generated this result transmitted reference range : 0.0 - 10.0 /100 WBCs. The refer ence range was not u sed to interpret th is result as normal/abnormal . NRBC x10^3 (test code <0.01 See_Comment [Auto mated = 1855474887) message] The s ystem which generated this result transmitted reference range : 10*3/?L. The reference range was not used to interpret this result as normal/abnormal . GRAN MAT (NEUT) % 81.8 % (test code = 770-8) IMM GRAN % (test code 0.70 % = 6644348484) LYMPH % (test code = 11.5 % 736-9) MONO % (test code = 5.8 % 5905-5) EOS % (test code = 0.1 % 713-8) BASO % (test code = 0.1 % 706-2) GRAN MAT x10^3(ANC) 6.06 10*3/uL 1.88-7.09 (test code = 1931423446) IMM GRAN x10^3 (test 0.05 10*3/uL 0.00-0.06 code = 5296643281) LYMPH x10^3 (test code 0.85 10*3/uL 1.32-3.29 L = 731-0) MONO x10^3 (test code 0.43 10*3/uL 0.33-0.92 = 742-7) EOS x10^3 (test code = <0.03 0.03-0.39 L 711-2) BASO x10^3 (test code <0.03 0.01-0.07 = 704-7) Lab Interpretation Abnormal (test code = 82363-0) [facility] urine ratio 2021-04-20 21:08:00 Test Item Value Reference Range Interpretation Comments Creatinine, 264.1 mg/dL Not Estab. urine, random (test code = 2161-8) Albumin, urine 16.6 ug/mL Not Estab. (test code = 53593-8) Microalbumin/cr See_Comment eatinine ratio Normal: (test code = 0 - 29 9318-7) Moderately increased: 30 - 300 Severely increa sed: >300 [Automated mess age] The system Sand[employer] generated this result transmit uriel reference range : 0 - 29 mg/g creat. The reference range was not used to interpret this result as normal/abnormal . PREM (test code Performed at: 01 - = PREM) [facility] [address] [place], [place] [id number] Director: Praveen Caicedo MD, Phone: [phone] [facility]
[2022-05-26 14:03] LABS: Absolute Lymphocytes (CBC) 2.5 K/uL (0.7-4.9); Hematocrit 43.2 % (36.0-45.0); Lymphocytes % 23.6 % (15.3-44.8); MCV 83.4 fL (80-100); MPV 7.5 fL (7.6-11.3); RBC Red Blood Cell Count 5.17 M/uL (3.86-4.86)
--- NOTE | 2022-05-26 14:10 | RAD REPORT ---
EXAM DESCRIPTION: RAD - Chest Single View - 05/26/2022 2:01 pm CLINICAL HISTORY: CHEST PAIN Chest pain. COMPARISON: Shoulder Left 2 View dated 03/01/2018 FINDINGS: Portable technique limits examination quality. The lungs are grossly clear. The heart is mildly enlarged with dextrocardia. No displaced fractures. IMPRESSION: No acute intrathoracic process suspected.
[2022-05-26 14:25] LABS: SARS-CoV-2 Antigen Rapid Res Negative (Negative)
[2022-05-26 14:26] LABS: Potassium 3.6 mmol/L (3.5-5.1)
[2022-05-26 14:32] LABS: Troponin High Sensitivity 76.5 pg/mL (<58.9)
[2022-05-26] MEDS ORDERED: ASPIRIN 81 MG CHEWABLE TABLET ONE (15:00)
--- NOTE | 2022-05-26 15:17 | EDPHYS ---
Physician Documentation [facility] Name: Radha Krishnamurthy Age: 61 yrs Sex: Female : 1960 Arrival Date: 05/26/2022 Time: 12:48 Bed 19 Private MD: ED Physician Preston Schmidt HPI: 05/26 13:37 This 61 yrs old Female presents to ER via Wheelchair with complaints of Chest jmm Tightness, High Blood Pressure. 13:37 Onset: The symptoms/episode began/occurred acutely, this morning. jmm 15:11 The pain does not radiate. Associated signs and symptoms: Pertinent positives: chills. jmm The chest pain is described as a pressure, squeezing. Duration: The patient or guardian reports a single episode, that is still ongoing. This is a 61 year old female with a history of htn, dm, dectracardia that presents to the ED with compalints of substernal chest pain beginning this morning. Patients tates this developed acutely with chills. Denies cough or shortness of breath. . Historical: - Allergies: 13:33 Keflex; ld1 - Home Meds: 13:33 clonidine HCl 0.1 mg Oral tab 1 tab 2 times per day [Active]; ld1 - PMHx: 13:33 Hypertensive disorder; ld1 13:34 Diabetes mellitus; ld1 13:35 dextracardia; ld1 - PSHx: 13:34 section; ld1 - Immunization history:: Adult Immunizations up to date, Client reports having NOT received the Covid vaccine. - Social history:: Smoking status: Patient denies any tobacco usage or history of. Patient/guardian denies using alcohol. ROS: 15:11 Constitutional: Negative for fever, chills, and weight loss. jmm 15:11 Respiratory: Negative for shortness of breath, cough, wheezing, and pleuritic chest pain, Abdomen/GI: Negative for abdominal pain, nausea, vomiting, diarrhea, and constipation. 15:11 Cardiovascular: Positive for chest pain. 15:11 All other systems are negative. Exam: 15:11 Constitutional: This is a well developed, well nourished patient who is awake, alert, jmm and in no acute distress. Head/Face: atraumatic. Eyes: EOMI, no conjunctival erythema appreciated ENT: Moist Mucus Membranes Neck: Trachea midline, Supple Chest/axilla: Normal chest wall appearance and motion. 15:11 Abdomen/GI: Non distended Back: Normal ROM Skin: General appearance color normal 15:11 Cardiovascular: Rate: normal, Rhythm: irregular. 15:11 Respiratory: the patient does not display signs of respiratory distress, Respirations: normal, Breath sounds: are clear throughout. 15:11 Musculoskeletal/extremity: ROM: intact in all extremities, mild edema noted bilaterally. 15:11 Skin: Appearance: Color: normal in color. 15:11 Neuro: Orientation: appropriate for stated age, Mentation: is normal, Memory: is normal. 15:11 Psych: Behavior/mood is pleasant, cooperative. Vital Signs: 13:32 BP 176 / 74; Pulse 73; Resp 18; Temp 97.8(TE); Pulse Ox 97% on R/A; Weight 96.62 kg; ld1 Height 5 ft. 3 in. (160.02 cm); Pain 0/10; 14:00 BP 156 / 67; Pulse 72; Resp 18; Pulse Ox 97% on R/A; bh1 14:40 BP 149 / 59; Pulse 76; Resp 18; Pulse Ox 100% on R/A; bh1 15:13 BP 157 / 74; Pulse 74; Resp 18; Pulse Ox 100% on R/A; bh1 16:43 BP 137 / 63; Pulse 74; Resp 18; Pulse Ox 97% on R/A; bh1 17:12 BP 130 / 54; Pulse 74; Resp 20; Pulse Ox 98% on R/A; bh1 13:32 Body Mass Index 37.73 (96.62 kg, 160.02 cm) ld1 MDM: 13:39 Patient medically screened. [facility] 15:03 Data reviewed: vital signs, nurses notes. Counseling: I had a detailed discussion with [facility] the patient and/or guardian regarding: the historical points, exam findings, and any diagnostic results supporting the discharge/admit diagnosis. 15:14 The patient was given aspirin in the Emergency Department. Counseling: I had a detailed [facility] discussion with the patient and/or guardian regarding: lab results, radiology results, the need for further work-up and treatment in the hospital. ED course: I discussed the patient with Dr. Schmidt whom accepted the patient to his service. . 05/26 13:37 Order name: Basic Metabolic Panel; Complete Time: 14:33 [facility] 05/26 13:37 Order name: CBC with Diff; Complete Time: 14:23 [facility] 05/26 13:37 Order name: Troponin HS; Complete Time: 14:33 [facility] 05/26 13:37 Order name: XRAY Chest (1 view); Complete Time: 14:14 [facility] 05/26 13:37 Order name: SARS RAPID; Complete Time: 14:25 [facility] 05/26 17:50 Order name: Glucose, Ancillary Testing; Complete Time: 17:52 [facility] 05/26 13:37 Order name: EKG; Complete Time: 13:37 [facility] 05/26 13:37 Order name: Cardiac monitoring; Complete Time: 13:53 [facility] 05/26 13:37 Order name: EKG - Nurse/Tech; Complete Time: 13:53 [facility] 05/26 13:37 Order name: IV Saline Lock; Complete Time: 13:53 [facility] 05/26 15:08 Order name: CT Chest For PE Angio; Complete Time: 16:31 [facility] 05/26 15:10 Order name: Echo with Doppler [facility] 05/26 16:52 Order name: CONS Physician Consult [facility] 05/26 13:37 Order name: Labs collected and sent; Complete Time: 13:53 [facility] 05/26 13:37 Order name: O2 Per Protocol; Complete Time: 13:37 [facility] 05/26 13:37 Order name: O2 Sat Monitoring; Complete Time: 13:37 ld1 Administered Medications: 14:54 Drug: Aspirin Chewable Tablet 324 mg [facility] 14:54 Follow up: Response: No adverse reaction [facility] Disposition Summary: 05/26/22 15:16 Hospitalization Ordered Hospitalization Status: Observation [facility] Provider: Julito Schmidt Location: Telemetry/MedSurg (observation) jmm Condition: Stable jm Problem: new jmm Symptoms: are unchanged [facility] Bed/Room Type: Standard [facility] Room Assignment: 220(05/26/22 17:02) dw Diagnosis - Chest pain, unspecified [facility] Forms: - Medication Reconciliation Form [facility] - SBAR form [facility] Addendum: 06/01/2022 20:22 Co-signature as Attending Physician, Preston hendrix Signatures: Dispatcher [employer] Ayse Ramires RN RN dw Angel Rudd PA PA jmm Nieto, Roman, MD MD rn Dibbern, Lauren, RN RN ld1 Paula Chang RN RN bh1 Corrections: (The following items were deleted from the chart) 05/26 17:02 15:16 shira mtz
--- NOTE | 2022-05-26 15:17 | ER ---
Nurse's Notes [facility] Name: Radha Krishnamurthy Age: 61 yrs Sex: Female : 1960 Arrival Date: 05/26/2022 Time: 12:48 Bed 19 Private MD: Diagnosis: Chest pain, unspecified Presentation: 05/26 13:32 Chief complaint: Patient states: Chest tightness, high blood pressure X 1 day. ld1 Coronavirus screen: At this time, the client does not indicate any symptoms associated with coronavirus-19. Ebola Screen: No symptoms or risks identified at this time. Initial Sepsis Screen: Does the patient meet any 2 criteria? No. Patient's initial sepsis screen is negative. Does the patient have a suspected source of infection? No. Patient's initial sepsis screen is negative. Risk Assessment: Do you want to hurt yourself or someone else? Patient reports no desire to harm self or others. Onset of symptoms was May 26, 2022. 13:32 Method Of Arrival: Wheelchair ld1 13:32 Acuity: BEVERLY 3 ld1 Triage Assessment: 13:35 General: Appears in no apparent distress. comfortable, Behavior is calm, cooperative, ld1 appropriate for age. Pain: Complains of pain in chest Pain does not radiate. Pain currently is 0 out of 10 on a pain scale. at worst was 7 out of 10 on a pain scale. Quality of pain is described as pressure, throbbing, Pain began 1 hour ago. EENT: No signs and/or symptoms were reported regarding the EENT system. Neuro: Level of Consciousness is awake, alert, obeys commands, Oriented to person, place, time, situation. Cardiovascular: Capillary refill < 3 seconds Patient's skin is warm and dry. Cardiovascular: Reports chest pain. Respiratory: Airway is patent Respiratory effort is even, unlabored. GI: Abdomen is round non-distended. : No signs and/or symptoms were reported regarding the genitourinary system. Derm: No signs and/or symptoms reported regarding the dermatologic system. Musculoskeletal: No signs and/or symptoms reported regarding the musculoskeletal system. Historical: - Allergies: 13:33 Keflex; ld1 - Home Meds: 13:33 clonidine HCl 0.1 mg Oral tab 1 tab 2 times per day [Active]; ld1 - PMHx: 13:33 Hypertensive disorder; ld1 13:34 Diabetes mellitus; ld1 13:35 dextracardia; ld1 - PSHx: 13:34 section; ld1 - Immunization history:: Adult Immunizations up to date, Client reports having NOT received the Covid vaccine. - Social history:: Smoking status: Patient denies any tobacco usage or history of. Patient/guardian denies using alcohol. Screenin:54 Abuse screen: Denies threats or abuse. Nutritional screening: No deficits noted. 1 Tuberculosis screening: No symptoms or risk factors identified. Fall Risk None identified. Assessment: 13:54 Pain: Complains of pain in chest Pain currently is 3 out of 10 on a pain scale. 1 Vital Signs: 13:32 BP 176 / 74; Pulse 73; Resp 18; Temp 97.8(TE); Pulse Ox 97% on R/A; Weight 96.62 kg; ld1 Height 5 ft. 3 in. (160.02 cm); Pain 0/10; 14:00 BP 156 / 67; Pulse 72; Resp 18; Pulse Ox 97% on R/A; bh1 14:40 BP 149 / 59; Pulse 76; Resp 18; Pulse Ox 100% on R/A; bh1 15:13 BP 157 / 74; Pulse 74; Resp 18; Pulse Ox 100% on R/A; bh1 16:43 BP 137 / 63; Pulse 74; Resp 18; Pulse Ox 97% on R/A; bh1 17:12 BP 130 / 54; Pulse 74; Resp 20; Pulse Ox 98% on R/A; bh1 13:32 Body Mass Index 37.73 (96.62 kg, 160.02 cm) 1 ED Course: 12:48 Patient arrived in ED. mr 13:03 Angel Rudd PA is PHCP. jmm 13:03 Preston Schmidt MD is Attending Physician. jmm 13:33 Triage completed. ld1 13:35 Arm band placed on right wrist. ld1 13:38 Paula Chang, JORDON is Primary Nurse. bh1 13:47 EKG done, by ED staff. tm3 13:53 SARS RAPID Sent. mb7 13:53 Basic Metabolic Panel Sent. mb7 13:53 CBC with Diff Sent. mb7 13:53 Troponin HS Sent. mb7 13:53 EKG done, by ED staff, reviewed by Angel TOSCANO. Inserted saline lock: 20 gauge in mb7 left upper arm, using aseptic technique. Blood collected. 13:54 No apparent distress. Resting quietly. Awaiting lab results, Awaiting radiology results.[facility] 13:54 Patient has correct armband on for positive identification. classroom monitor on. Pulse bh1 ox on. NIBP on. Door closed. Noise minimized. Visitors limited. Warm blanket given. 13:54 No provider procedures requiring assistance completed. Patient maintains SpO2 [facility] saturation greater than 95% on room air. 14:03 XRAY Chest (1 view) In Process Unspecified. EDMS 14:40 No apparent distress. Resting quietly. Awaiting lab results, Awaiting radiology results.[facility] 15:13 No apparent distress. Resting quietly. Awaiting CT Scan. [facility] 15:16 Julito Schmidt MD is Hospitalizing Provider. [facility] 16:[address] [facility] 16:09 CT Chest For PE Angio In Process Unspecified. EDMS 16:43 No apparent distress. Resting quietly. Awaiting bed assignment. 1 17:14 No apparent distress. Resting quietly. transfer. [facility] 17:46 Patient admitted, IV remains in place. [facility] Administered Medications: 14:54 Drug: Aspirin Chewable Tablet 324 mg Route: PO; [facility] 14:54 Follow up: Response: No adverse reaction [facility] Medication: 13:54 VIS not applicable for this client. [facility] Outcome: 15:16 Decision to Hospitalize by Provider. [facility] 17:46 Admitted to Med/surg accompanied by tech, room 220, Report called to constantine marte [facility] 17:46 Condition: good 17:46 Discharge instructions given to highway commissioner. 17:55 Patient left the ED. [facility] Signatures: Dispatcher [employer] EDMS Stan Chávez 3 Angel Rudd PA PA jmm Rivera, Mary mr Dibbern, Lauren, RN RN ld1 [place] Paula Roberts RN RN bh1 Corrections: (The following items were deleted from the chart) 13:35 13:32 Pulse 73bpm; Resp 18bpm; Pulse Ox 97% RA; Temp 97.8F Temporal; 96.62 kg; Height 5 ld1 ft. 3 in.; BMI: 37.7; Pain 0/10; ld1
--- NOTE | 2022-05-26 16:25 | RAD REPORT ---
EXAM DESCRIPTION: CT - Chest For Pe Angio - 05/26/2022 4:08 pm CLINICAL HISTORY: Chest pain. Chest pain COMPARISON: No comparisons TECHNIQUE: CT angiogram of the pulmonary arteries was performed with MIP. All CT scans are performed using dose optimization technique as appropriate and may include automated exposure control or mA/KV adjustment according to patient size. FINDINGS: No evidence of pulmonary thromboembolism. No acute aortic finding demonstrated. Dextrocardia is present with aberrant right subclavian artery. The lungs are clear. No significant pericardial or pleural fluid. No concerning bony finding. IMPRESSION: No evidence of pulmonary thromboembolism. Dextrocardia is present with aberrant right subclavian artery.
--- NOTE | 2022-05-26 16:57 | P.HP ---
Certification for Inpatient Patient admitted to: Observation With expected LOS: <2 Midnights Practitioner: I am a practitioner with admitting privileges, knowledge of patient current condition, hospital course, and medical plan of care. Services: Services provided to patient in accordance with Admission requirements found in Title 42 Section 412.3 of the Code of Federal Regulations Patient History Date of Service: 05/26/22 Reason for admission: chest pain, NSTEMI History of Present Illness: 61yo F, PMH: HTN, dextrocardia, NIDDM2 Presents to ED after episode of chest pressure. Patient was sitting at desk at work when she suddenly felt as though someone dumped cold water on her head and went down her body. She felt some mild right sided chest pressure/discomfort. She reports being in her usual state of health until this episode, denies any recent changes in medications, no recent infections. She recently was diagnosed with YONATHAN and CPAP was ordered - on backorder for 6+ months. Reports occasional shortness of breath with oxygen use at home since she had COVID pneumonia last july. In the ED, she was noted to have mildly elevated troponin. EKG without ST changes, CXR clear, with dextrocardia noted. CTA chest negative for PE, no infection, no fluid Admitted for continued management/workup of elevated troponin. Allergies cephalexin [From Keflex] Allergy (Verified 05/26/22 18:19) Nausea/Vomiting egg Allergy (Verified 05/26/22 18:19) Itching dairy products Allergy (Uncoded 05/26/22 18:19) Nausea/Vomiting oats, wheat Allergy (Uncoded 05/26/22 18:19) Nausea/Vomiting soybeans Allergy (Uncoded 05/26/22 18:19) Nausea/Vomiting Home Medications: Dulaglutide [Trulicity] 3 mg SQ SEECOM 05/26/22 Insulin Degludec [Tresiba] 300 unit SQ SEECOM 05/26/22 Levothyroxine [Synthroid] 88 mcg PO [id number] 05/26/22 Lisinopril/Hydrochlorothiazide [Lisinopril-Hctz 10-12.5 mg Tab] 1 tab PO DAILY 05/26/22 Multivitamin with Minerals [Multivitamins with Minerals] 1 tab PO DAILY 05/26/22 cloNIDine [Clonidine] 6 mg TD SEECOM 05/26/22 - Past Medical/Surgical History -: HTN -: difficulty swallowing pills -: NIDDM2 -: c--sxn - Family History Father -: Heart disease, Hypertension Mother -: Heart disease, Hypertension, Diabetes, Stroke Brother -: Heart disease, Hypertension, Diabetes - Social History Smoking Status: Never smoker Alcohol use: No Place of Residence: Home Review of Systems 10-point ROS is otherwise unremarkable Physical Examination - Physical Exam General: Alert, In no apparent distress, Oriented x3 HEENT: Mucous membr. moist/pink, EOMI, Sclerae nonicteric Neck: Supple Respiratory: Clear to auscultation bilaterally, Normal air movement Cardiovascular: No edema, Regular rate/rhythm, No murmurs Gastrointestinal: Soft and benign, Non-distended, No tenderness Musculoskeletal: No erythema, No tenderness Integumentary: No rashes, No significant lesion Neurological: Normal speech, Normal strength at 5/5 x4 extr - Studies Laboratory Data (last 24 hrs) 05/26/22 13:51: WBC 10.4, Hgb 14.3, Hct 43.2, Plt Count 248 05/26/22 13:51: Sodium 140, Potassium 3.6, BUN 7, Creatinine 0.91, Glucose 59 L Assessment and Plan - Advance Directives Does patient have a Living Will: No Does patient have a Durable POA for Healthcare: No Physician Review Additional Text: Problem List Chest pain, elevated troponin; NSTEMI Dextrocardia HTN HLD NIDDM2 elevated troponin, ekg without st changes currently without chest pain/pressure no recent changes in medications Recently diagnosed with sleep apnea, awaiting CPAP delivery aspirin, beta stacy, statin; lovenox trend troponin cardio consulted echo ordered however unlikely to be obtained due it being late sunday afternoon sliding scale insulin VTE: lovenox therapeutic Code: DNR - confirmed Dispo: home, ~1 day, pending workup Time Spent Managing Pts Care (In Minutes): 65
[2022-05-26] MEDS: ENOXAPARIN 100 MG/ML SYR SQ SCH (18:16)
[2022-05-26 18:31] VITALS: O2SAT 98
[2022-05-26 18:47] LABS: Troponin High Sensitivity 73.8 pg/mL (<58.9)
[2022-05-26] MEDS ORDERED: ATORVASTATIN 40 MG TAB PO SCH (21:00)
[2022-05-26] MEDS ORDERED: METOPROLOL TAR 25 MG TAB PO SCH (21:00)
[2022-05-26] MEDS ORDERED: METOPROLOL TAR 50 MG TAB PO SCH (21:00)
[2022-05-26] MEDS ORDERED: ENOXAPARIN 100 MG/ML SYR SQ SCH (21:00)
[2022-05-26] MEDS ORDERED: INSULIN -REGULAR HUMAN 50 UNIT/0.5 ML ML SQ SCH (21:00)
[2022-05-26 21:05] VITALS: BMI 37.6
[2022-05-27 03:43] LABS: Absolute Lymphocytes (CBC) 2.6 K/uL (0.7-4.9); Hematocrit 41.6 % (36.0-45.0); Lymphocytes % 31.6 % (15.3-44.8); MCV 84.7 fL (80-100); MPV 7.9 fL (7.6-11.3); RBC Red Blood Cell Count 4.91 M/uL (3.86-4.86)
[2022-05-27 03:53] LABS: Potassium 3.4 mmol/L (3.5-5.1)
[2022-05-27 03:54] LABS: Troponin High Sensitivity 72.1 pg/mL (<58.9)
[2022-05-27] MEDS: ENOXAPARIN 100 MG/ML SYR SQ SCH (06:00)
--- NOTE | 2022-05-27 07:34 | P.DS ---
Admission Date: 05/26/22 Discharge Date: 05/27/22 Disposition: ROUTINE DISCHARGE Discharge Condition: GOOD Reason for Admission: chest pain, NSTEMI Consultations: Cardiology - Dr. Hansen Brief History of Present Illness: 61yo F, PMH: HTN, dextrocardia, NIDDM2 Presents to ED after episode of chest pressure. Patient was sitting at desk at work when she suddenly felt as though someone dumped cold water on her head and went down her body. She felt some mild right sided chest pressure/discomfort. She reports being in her usual state of health until this episode, denies any recent changes in medications, no recent infections. She recently was diagnosed with YONATHAN and CPAP was ordered - on backorder for 6+ months. Reports occasional shortness of breath with oxygen use at home since she had COVID pneumonia last july. In the ED, she was noted to have mildly elevated troponin. EKG without ST changes, CXR clear, with dextrocardia noted. CTA chest negative for PE, no infection, no fluid Admitted for continued management/workup of elevated troponin. Hospital Course: Problem List NSTEMI, type II, secondary to HTN Dextrocardia HTN HLD NIDDM2 Patient's troponins remained stable and downtrended. Symptoms resolved. Chest x-ray and CT chest were clear of any infiltrate, no infection, no pulmonary edema, no pulmonary embolus, no pericardial or pleural fluid. Cardiology was consulted, felt the troponin leak was secondary to her elevated blood pressure and recommended doubling her lisinopril -HCTZ dose. Follow up with PCP within ~1 week. [employer] in the next few weeks. Patient stated she has plenty of lisinopril-HCTZ pills at home, more than enough to double up for >1 month. She will follow up with PCP and [employer] for recheck and further prescriptions. Monitor blood pressure daily at home. Physical Exam General: Alert, In no apparent distress, Oriented x3 HEENT: Mucous membr. moist/pink, EOMI, Sclerae nonicteric Respiratory: Clear to auscultation bilaterally, Normal air movement Cardiovascular: No edema, Regular rate/rhythm, No murmurs Gastrointestinal: Soft and benign, Non-distended, No tenderness Neurological: Normal speech, Normal strength at 5/5 x4 extr Vital Signs/Physical Exam: Temp Pulse Resp BP Pulse Ox 97.1 F 71 19 129/60 95 07/23/22 04:00 05/27/22 04:00 05/27/22 04:00 05/27/22 04:00 05/27/22 04:00 Laboratory Data at Discharge: WBC 8.2 K/uL (4.3-10.9) D 05/27/22 03:11 Hgb 13.7 g/dL (12.0-15.0) 05/27/22 03:11 Hct 41.6 % (36.0-45.0) 05/27/22 03:11 Plt Count 236 K/uL (152-406) 05/27/22 03:11 Sodium 141 mmol/L (136-145) 05/27/22 03:11 Potassium 3.4 mmol/L (3.5-5.1) L 05/27/22 03:11 BUN 7 mg/dL (7-18) 05/27/22 03:11 Creatinine 0.80 mg/dL (0.55-1.3) 05/27/22 03:11 Glucose 59 mg/dL (74-106) L 05/27/22 03:11 Triglycerides 99 mg/dL (<150) 05/26/22 17:50 Cholesterol 206 mg/dL (<200) H 05/26/22 17:50 HDL Cholesterol 60 mg/dL (40-60) 05/26/22 17:50 Cholesterol/HDL Ratio 3.43 05/26/22 17:50 Home Medications: Dulaglutide [Trulicity] 3 mg SQ SEECOM 05/26/22 Insulin Degludec [Tresiba] 300 unit SQ SEECOM 05/26/22 Levothyroxine [Synthroid*] 88 mcg PO [id number] 05/26/22 Lisinopril/Hydrochlorothiazide [Lisinopril-Hctz 10-12.5 mg Tab] 1 tab PO DAILY 05/26/22 Multivitamin with Minerals [Multivitamins with Minerals] 1 tab PO DAILY 05/26/22 cloNIDine [Clonidine] 6 mg TD SEECOM 05/26/22 Diet: ADA Time spent managing pt's care (in minutes): 45
[2022-05-27 08:21] VITALS: BP 131/61; TEMP 97.2
[2022-05-27] MEDS ORDERED: ASPIRIN EC 81 MG TAB PO SCH (09:00)
--- NOTE | 2022-05-28 06:23 | EKG ---
Test Date: 2022-05-26 Test Time: 13:47:45 Fleet Technician: TM MEASUREMENT RESULTS: Intervals: Rate: 69 MO: 160 QRSD: 90 QT: 448 QTc: 480 [place]: P: MO: 160 QRS: 80 T: 73 INTERPRETIVE STATEMENTS: Normal sinus rhythm Normal ECG No previous ECG available for comparison Electronically Signed On 05-28-22 06:22:02 CDT by Monico Hansen
--- NOTE | 2022-05-28 09:59 | CON ---
Date of Consultation: 05/27/[address] patient [address] to Dr. Schmidt on 05/26/2022. I saw the patient on 05/27/2022. Reason For Consultation: Chest pain and elevated troponin. History Of Present Illness: Ms. Krishnamurthy is 61, who sees Dr. Timothy Masters for cardiology in [place]. She has had 3 heart catheterizations in the past that were all normal. She does have dextrocardia, hypertension, and diabetes. She came in with hypertensive episode. Blood pressures over 170 with so me chest pressure with it and she had some very minimally elevated troponin of 73 and I was consulted . By the time I saw her, she was asymptomatic and normotensive. She denied nausea, vomiting, diapho resis, PND, orthopnea, pedal edema, palpitation, or syncope. Past Medical History: As stated above. Allergies: SHE IS ALLERGIC TO EGGS, OATS, SOYA TAN, AND CEPHALEXIN. Review of Systems: Positive for being a DNR. Social History: Negative. Family History: Positive for diabetes. Medications: At home include Trulicity, Synthroid, insulin, clonidine patch, and lisinopril with hyd rochlorothiazide. Physical Examination: Vital Signs: By the time I saw her, her pressure was 140/78. She was in a sinus rhythm. HEENT: Negative. Neck: Supple with no bruit. Chest: Clear. Cardiac: Revealed a regular rhythm and rate with S4 gallops. Her cardiac sounds were all on the rig ht side of the chest because of dextrocardia. Abdomen: Benign. Extremities: Revealed no clubbing, cyanosis, or edema. Diagnostic Data: Her troponin was 73. CTA was negative of the chest. Chest x-ray was negative exce pt for dextrocardia. Impression And Plan: Chest pressure, most likely secondary to hypertension which is probably what ca used her elevation of the troponin. Her troponin pattern is not consistent with an acute myocardial infarction. Her EKG is unremarkable. Her chest x-ray is unremarkable. I think we need to increase her lisinopril with hydrochlorothiazide. Consider the use of Norvasc for better blood pressure contr ol. Continue on clonidine patch, but I am comfortable with her going home and seeing Dr. Masters in t he near future. Her diabetes and hypothyroidism are fairly well controlled. AYM/MODL Voice ID: [id number] Report ID: [id number]
== END 2022-05-27 08:25 | disposition home or self-care (01) ==
LOC: ER 12:45 → ERHOLD 16:49 → 2ND 17:44
PROVIDERS: ADMIT Hospitalist; ATTEND Hospitalist
DX: I21.A1 Myocardial infarction type 2 (principal); I10 Essential (primary) hypertension; Q24.0 Dextrocardia; E78.5 Hyperlipidemia, unspecified; E11.9 Type 2 diabetes mellitus without complications; E03.9 Hypothyroidism, unspecified; G47.33 Obstructive sleep apnea (adult) (pediatric); Z66 Do not resuscitate; Z86.16 Personal history of COVID-19; Z20.822 Contact with and (suspected) exposure to COVID-19; Z28.310 Unvaccinated for COVID-19; Z79.4 Long term (current) use of insulin; Z79.899 Other long term (current) drug therapy; Z88.3 Allergy status to other anti-infective agents; Z91.012 Allergy to eggs; Z91.011 Allergy to milk products; Z91.018 Allergy to other foods; Z82.49 Family history of ischemic heart disease and other diseases of the circulatory system; Z82.3 Family history of stroke; Z83.3 Family history of diabetes mellitus
CPT/HCPCS: 93005; 85025 ×2; 80048 ×2; 36415; 80061; 82947 ×3; 84484 ×4; 71275; 71045; 94760 ×2; 99285; 87811; Q9967; J1650 ×2; G0378 ×3